=== PATIENT | male | born 1980 | race Caucasian/White ===

== ENCOUNTER 2017-08-24 17:33 | Inpatient (IN) | payer OTHER, BC ==
[2017-08-24] MEDS ORDERED: Furosemide 100 MG/10 ML VIAL SLOW IVP SCH (20:00)
[2017-08-24 20:29] LABS: #Basophils 0.1 thou/uL (0.0-0.2); #Eosinphils 0.3 thou/uL (0.0-0.7); #Lymphocytes 2.3 thou/uL (1.20-3.40); #Monocytes 0.4 thou/uL (0.11-0.59); #Neutrophils 3.9 thou/uL (1.40-6.50); %Basophils 0.8 % (0.0-1.0); %Eosinophils 4.5 % (0.0-10.0); %Lymphocytes 32.6 % (21.0-51.0); %Monocytes 6.1 % (0.0-10.0); %Neutrophils 55.9 % (42.0-75.0); Hemoglobin 12.2 g/dL (14.0-18.0); Mean Corpuscular HGB CONC 31.4 g/dL (32.0-36.0); Mean Corpuscular Hemoglobin 28.8 pg (27.0-31.0); Mean Corpuscular Volume 91.7 fl (80.0-94.0); Mean Platelet Volume 11.4 fL (7.4-10.4); Platelet Count 137 thou/uL (130-400); RBC Distribution Width 11.3 % (11.5-14.5); Red Blood Cell (RBC) Count 4.25 mill/uL (4.70-6.10)
[2017-08-24 20:30] VITALS: BMI 28.6
[2017-08-24 20:38] LABS: ALT (SGPT) 27 U/L (8-55); AST (SGOT) 31 U/L (5-34); Alkaline Phosphatase 63 U/L (40-150); Anion Gap 12 mmol/L (10-20); BUN (Urea Nitrogen) 32 mg/dL (8.9-20.6); Bilirubin, Direct 0.4 mg/dL (0.1-0.3); Bilirubin, Total 0.9 mg/dL (0.2-1.2); Calc. Creatinine Clearance 97 mL/min (70-130); Calcium 8.6 mg/dL (7.8-10.44); Carbon Dioxide 25 mmol/L (22-29); Chloride 111 mmol/L (98-107); Estimated GFR-MDRD 61; Glucose 116 mg/dL (70-105); Potassium 5.1 mmol/L (3.5-5.1); Protein, Total 5.6 g/dL (6.0-8.3); Sodium 143 mmol/L (136-145)
[2017-08-24 20:42] LABS: Troponin I 0.057 ng/mL (< 0.028)
[2017-08-24] MEDS ORDERED: HYDROcodone/Acetaminophen 10/325 mg Tablet PO PRN (21:47)
[2017-08-24] MEDS ORDERED: Acetaminophen 325 MG TAB PO PRN (21:47)
[2017-08-24] MEDS ORDERED: Dextrose 5% in Water 1,000 ML IV PRN (21:47)
[2017-08-24] MEDS ORDERED: Ondansetron ODT 4 MG TAB PO PRN (21:47)
[2017-08-24] MEDS ORDERED: HYDROcodone/Acetaminophen 5/325 mg Tablet PO PRN (21:47)
[2017-08-24] MEDS ORDERED: Dextrose 50% Abboject 50 ML SYRINGE SLOW IVP PRN (21:47)
[2017-08-24] MEDS ORDERED: Metoprolol Tartrate 25 MG TAB PO SCH (22:00)
[2017-08-24] MEDS ORDERED: Enoxaparin Sodium 40 MG/0.4 ML SYRINGE SC SCH (22:00)
[2017-08-24] MEDS: Nitroglycerin 2% Ointment 1 INCH/1 GM Packet TOP SCH (23:37)
[2017-08-24] MEDS: Furosemide 40 MG/4 ML VIAL SLOW IVP SCH (23:37)
[2017-08-25 05:09] LABS: Hemoglobin A1c 6.2 % (4.0-6.0)
[2017-08-25 05:24] LABS: #Basophils 0.1 thou/uL (0.0-0.2); #Eosinphils 0.2 thou/uL (0.0-0.7); #Monocytes 0.5 thou/uL (0.11-0.59); #Neutrophils 3.4 thou/uL (1.40-6.50); %Basophils 0.9 % (0.0-1.0); %Eosinophils 3.3 % (0.0-10.0); %Lymphocytes 31.9 % (21.0-51.0); %Monocytes 8.4 % (0.0-10.0); %Neutrophils 55.5 % (42.0-75.0); Anion Gap 10 mmol/L (10-20); BUN (Urea Nitrogen) 30 mg/dL (8.9-20.6); Calc. Creatinine Clearance 103 mL/min (70-130); Calcium 8.3 mg/dL (7.8-10.44); Carbon Dioxide 23 mmol/L (22-29); Cardiac Risk 2.6 (Less than 4.5); Chloride 110 mmol/L (98-107); Cholesterol 102 mg/dl (< 200 Desired); Estimated GFR-MDRD 65; Glucose 103 mg/dL (70-105); HDL Cholesterol 40 mg/dL (>60 Neg Risk); Hemoglobin 11.4 g/dL (14.0-18.0); LDL Cholesterol, Calculated 43 mg/dL; Magnesium 1.9 mg/dL (1.6-2.6); Mean Corpuscular HGB CONC 31.6 g/dL (32.0-36.0); Mean Corpuscular Hemoglobin 28.9 pg (27.0-31.0); Mean Corpuscular Volume 91.5 fl (80.0-94.0); Mean Platelet Volume 11.4 fL (7.4-10.4); Platelet Count 117 thou/uL (130-400); Potassium 4.4 mmol/L (3.5-5.1); RBC Distribution Width 11.3 % (11.5-14.5); Red Blood Cell (RBC) Count 3.95 mill/uL (4.70-6.10); Sodium 139 mmol/L (136-145); Triglycerides 97 mg/dL (Less than 150); White Blood Cell (WBC) Count 6.1 thou/uL (4.8-10.8)
[2017-08-25 05:28] LABS: Troponin I 0.051 ng/mL (< 0.028)
[2017-08-25 05:34] LABS: CKMB 15.6 ng/mL (0-6.6)
[2017-08-25] MEDS: Nitroglycerin 2% Ointment 1 INCH/1 GM Packet TOP SCH (06:15)
[2017-08-25] MEDS: Furosemide 40 MG/4 ML VIAL SLOW IVP SCH ×3 (06:15→15:55)
--- NOTE | 2017-08-25 06:25 | HP ---
PRIMARY CARE PHYSICIAN: Neeraj Howe MD PRIMARY WOOD DRILL OPERATOR: Holly Serrano M.D. CHIEF COMPLAINT: Shortness of breath. HISTORY OF PRESENT ILLNESS: Mr. Rader is a pleasant 37-year-old white male with history of diabete s, currently insulin-dependent with diabetic retinopathy and chronic kidney disease stage 3B, who pre sents for direct admission from Dr. Cheung's office for CHF. The patient does have a history of chronic lower extremity edema, he takes Lasix for this, 20 mg rani y. He has had increasing edema from just the feet and ankles as usual up to the upper and lower extr emities. He was told to increase his Lasix 60 mg a day but that was not having any effect. He went to Dr. Serrano for evaluation and followup. There, she did a bedside echo that showed an EF of 25%. He has been complaining of orthopnea, PND, and central chest pain only with coughing. The was go ing for about 2-3 days and she was concerned about that is a new decreased ejection fraction and sent him to the hospital for workup. The patient denies any fevers or chills, no sputum production, no h emoptysis or lower GI bleeding. No diarrhea or constipation. PAST MEDICAL HISTORY: 1. Insulin-dependent diabetes mellitus type 2. 2. Diabetic retinopathy. 3. Chronic kidney disease, stage 3B. 4. Chronic systolic congestive heart failure, unknown if this is ischemic or nonischemic cardiomyopa thy. HOME MEDICATIONS: 1. Lantus 40 units subcu at bedtime. 2. Lasix 20 mg p.o. daily, recently increased to 60 mg daily with no effect. He does not take any t liseth. 3. Lisinopril 10 mg daily. 4. Atorvastatin 40 mg p.o. at bedtime. PAST SURGICAL HISTORY: None. ALLERGIES: NKDA. FAMILY HISTORY: Significant for paternal grandparents with coronary disease. No history of prematur e coronary disease in the family. SOCIAL HISTORY: Negative for habits x3. REVIEW OF SYSTEMS: Ten-point review of systems was performed as negative for all systems except stat ed as per HPI. PHYSICAL EXAMINATION: VITAL SIGNS: Temperature 97.3, pulse 78, blood pressure 165/96, respiratory rate 18, satting 95% on room air. GENERAL: He is awake. He is alert. He is oriented x3. He is a well-developed, well-nourished, whi te male who appears to be in no acute distress. HEENT: Normocephalic, atraumatic. Pupils are equal, round, and reactive to light bilaterally. Muco us membranes are moist. No visible lesions. No thrush. NECK: Supple. There is no lymphadenopathy. He actually has no JVD. No thyromegaly. Normal caroti d upstroke. There are no bruits. LUNGS: Anteriorly has good air movement, symmetric chest excursion. Posteriorly is clear until the bases. He has bibasilar crackles. There is no prolonged expiratory phase and no wheezes. CARDIOVASCULAR: Normal S1, S2. No S3 or S4. I do not appreciate murmurs. ABDOMEN: Soft, it is nontender, nondistended. There is no hepatosplenomegaly. No rebound, rigidity , or guarding. There are normoactive bowel sounds in all 4 quadrants. EXTREMITIES: Show no cyanosis or clubbing. Does have 2+ edema up to about the level of the knee, 1+ to about mid thigh, it is pitting. SKIN: Warm, moist, and well perfused. There are no rashes, no other lesions. NEUROLOGIC: Cranial nerves II through XII are grossly intact. There is 5/5 strength, normal speech pattern and no focal deficits. MUSCULOSKELETAL: Normal to inspection. Enlarged joints are highly inflamed. There are no palpable effusions. LABORATORY DATA: Sodium 143, potassium 5.1, chloride is 111, bicarbonate 25, BUN 32, creatinine is 1 .31, actually improved from previous values of 1.95 back in 05/2017. Liver functions are normal. Tr oponin I is elevated at 0.057 without a prior. BNP of 741 up from 322.3 12 days ago. Glucose was 95. CBC showed a white count of 7, hemoglobin 12.2, hematocrit 39.0, platelet count is 137,000. He has a normal differential. RADIOGRAPHIC STUDIES: None. Chest x-ray has been ordered. Supposedly had a 2D echocardiogram done earlier today that I do not have the results just yet. ASSESSMENT AND PLAN: 1. New diagnosis of congestive heart failure, acute on chronic systolic. Ejection fraction of alleg edly 25%. The patient is already on lisinopril, we added metoprolol, and changed to IV Lasix. We wi ll get strict I's and O's and Cardiology (Dr. Serrano specifically) has been consulted. He would likely need to be on beta-alvin long-term. 2. Abnormal troponin at 0.057, certainly could be to demand ischemia; however, we do not know his co ronary artery status. We placed him on aspirin, oxygen continuously, nitroglycerin paste, and beta-b locker as above. We will get serial cardiac biomarkers. Follow up with an echocardiogram. 3. Diabetes mellitus type 2, insulin-dependent. We will hold his Lantus and put him on moderate dos e sliding scale insulin for correction. He will be on a diabetic heart healthy diet. We will likely make him n.p.o. after midnight until Dr. Serrano has a chance to see him. 4. Diabetic retinopathy, stable. 5. Chronic kidney disease stage 3. Per current lab work, his GFR is 61, which actually puts him in chronic kidney disease stage 2. His creatinine today is better than that has been. We will watch ve ry closely.
[2017-08-25] MEDS ORDERED: FLU VACC QS2017-18 36 mo. & older 0.5 ML SYRINGE IM ONE (09:00)
[2017-08-25] MEDS: Famotidine 20 MG TAB PO SCH ×2 (09:49→21:19)
[2017-08-25] MEDS: Aspirin 325 MG TAB PO SCH (09:49)
[2017-08-25] MEDS: Metoprolol Tartrate 25 MG TAB PO SCH ×2 (09:50→21:20)
[2017-08-25] MEDS: Lisinopril 10 MG TAB PO SCH (09:50)
[2017-08-25] MEDS: Enoxaparin Sodium 40 MG/0.4 ML SYRINGE SC SCH (09:50)
[2017-08-25] MEDS ORDERED: Clopidogrel Bisulfate 75 MG TAB ONE (09:56)
[2017-08-25 12:00] LABS: Troponin I 0.049 ng/mL (< 0.028)
[2017-08-25] MEDS: HumaLOG 300 UNITS/3 ML VIAL SC PRN (12:16)
--- NOTE | 2017-08-25 13:18 | PDOC.PN ---
- Subjective Encounter Start Date: 08/25/17 Encounter Start Time: 10:30 Subjective: breathing better, no chest pain or palpitations - Objective Resuscitation Status: Resuscitation Status FULL:Full Resuscitation MAR Reviewed: Yes Vital Signs & Weight: Vital Signs (12 hours) Temp Pulse Resp BP BP Pulse Ox 08/25/17 12:00 98.0 F 92 17 132/88 96 08/25/17 09:50 141/88 H 08/25/17 08:00 97.5 F L 90 18 141/88 H 95 08/25/17 04:00 97.8 F 93 15 123/83 95 Weight Weight 194 lb I&O: 08/24/17 08/25/17 08/26/17 06:59 06:59 06:59 Intake Total 240 240 Output Total 1275 Balance -1035 240 Result Diagrams: 08/25/17 04:31 08/25/17 04:31 Additional Labs: Accuchecks 08/25/17 08/25/17 08/25/17 11:13 06:39 00:02 POC Glucose 280 H 90 111 H 08/24/17 20:18 POC Glucose 95 Phys Exam - Physical Examination HEENT: PERRLA, moist MMs Neck: no JVD, supple Respiratory: no wheezing, no rales Cardiovascular: RRR, no significant murmur Gastrointestinal: soft, non-tender, positive bowel sounds Musculoskeletal: pulses present, edema present Neurological: non-focal, moves all 4 limbs Psychiatric: normal affect, A&O x 3 Dx/Plan (1) CHF exacerbation Code(s): I50.9 - HEART FAILURE, UNSPECIFIED Status: Acute Qualifiers: Congestive heart failure type: systolic Qualified Code(s): I50.23 - Acute on chronic systolic (congestive) heart failure (2) HTN (hypertension) Code(s): I10 - ESSENTIAL (PRIMARY) HYPERTENSION Status: Chronic Qualifiers: Hypertension type: essential hypertension Qualified Code(s): I10 - Essential (primary) hypertension (3) Demand ischemia of myocardium Code(s): I24.8 - OTHER FORMS OF ACUTE ISCHEMIC HEART DISEASE Status: Acute (4) Cardiomyopathy Code(s): I42.9 - CARDIOMYOPATHY, UNSPECIFIED Status: Suspected - Plan prior h/o alc abuse for more than 12 yrs (12-24beers daily), quit 2yrs back -: will change lasix to q12h, had recent echo done in office -: no prior stress test/cath per patient -: is on lisinopril, lopressor and nitropaste -: cardiology has been consulted () * . Review of Systems - Medications/Allergies Allergies/Adverse Reactions: Allergies Allergy/AdvReac Type Severity Reaction Status Date / Time No Known Allergies Allergy Verified 08/24/17 20:35 Medications: Current Medications Acetaminophen (Tylenol) 650 mg PO Q4H PRN PRN Reason: Headache/Fever or Pain Hydrocodone Bitart/Acetaminophen ([place] 10/325) 1 tab PO Q4H PRN PRN Reason: Severe Pain (7-10) Hydrocodone Bitart/Acetaminophen ([place] 5/325) 1 tab PO Q4H PRN PRN Reason: Moderate Pain (4-6) Aspirin (Aspirin) 325 mg PO QAM-WM ON LICENSE OF [facility] Last Admin: 08/25/17 09:49 Dose: 325 mg Dextrose/Water (Dextrose 50%) 25 gm SLOW IVP PRN PRN PRN Reason: Hypoglycemia Enoxaparin Sodium (Lovenox) 40 mg SC 0900 ON LICENSE OF [facility] Last Admin: 08/25/17 09:50 Dose: 40 mg Famotidine (Pepcid) 20 mg PO BID ON LICENSE OF [facility] Last Admin: 08/25/17 09:49 Dose: 20 mg Furosemide (Lasix) 40 mg SLOW IVP 0400,1000,1600,2200 ON LICENSE OF [facility] Last Admin: 08/25/17 09:50 Dose: 40 mg Glucagon (Glucagon) 1 mg IM PRN PRN PRN Reason: Hypoglycemia Dextrose/Water (D5w) 1,000 mls @ 0 mls/hr IV .Q0M PRN; As Directed PRN Reason: Hypoglycemia Insulin Human Lispro (Humalog) 0 units SC .MODERATE SLIDING SC PRN PRN Reason: Moderate Correctional Scale Last Admin: 08/25/17 12:16 Dose: 6 unit Lisinopril (Zestril) 10 mg PO DAILY ON LICENSE OF [facility] Last Admin: 08/25/17 09:50 Dose: 10 mg Metoprolol Tartrate (Lopressor) 25 mg PO BID ON LICENSE OF [facility] Last Admin: 08/25/17 09:50 Dose: 25 mg Nitroglycerin (Nitro-Bid 2% Ointment) 0.5 inch TOP Q8HR ON LICENSE OF [facility] Last Admin: 08/25/17 06:15 Dose: 0.5 inch Ondansetron HCl (Zofran Odt) 4 mg PO Q6H PRN PRN Reason: Nausea/Vomiting
--- NOTE | 2017-08-25 13:23 | RAD ---
ONE VIEW CHEST: HISTORY: Congestive heart failure. COMPARISON: 02/04/2011 FINDINGS: Portable upright chest demonstrates a normal cardiac silhouette. The pulmonary vessels are prominent . There are patchy interstitial opacities throughout the lung parenchyma. Small bilateral effusion. No pneumothorax. IMPRESSION: Congestive heart failure. POS: KENNY
[2017-08-25] MEDS ORDERED: Metolazone 5 MG TAB PO SCH (14:30)
[2017-08-25] MEDS ORDERED: Mag-Al Plus 1200 MG/1200 MG/120 MG/30 ML UDCUP PO PRN (16:37)
[2017-08-25] MEDS: Calcium Carbonate 500 MG ChewTAB PO PRN (16:45)
--- NOTE | 2017-08-25 18:27 | PDOC.CTH ---
<Angeles Person - Last Filed: 08/25/17 18:27> Cardiology Progress Note - Subjective The pt seen and examined. No overnight events. No cardiac complaints. He stated he can breath much better today. - Objective Vital Signs Temp Pulse Pulse Pulse Resp BP BP 08/25/17 16:00 98.0 F 89 18 08/25/17 12:00 98.0 F 92 17 08/25/17 09:50 141/88 H 08/25/17 09:26 94 97 129/78 08/25/17 08:00 97.5 F L 90 18 BP BP Pulse Ox Pulse Ox Pulse Ox 08/25/17 16:00 126/82 96 08/25/17 12:00 132/88 96 08/25/17 09:50 08/25/17 09:26 128/81 97 97 08/25/17 08:00 141/88 H 95 Weight 194 lb 08/24/17 08/25/17 08/26/17 06:59 06:59 06:59 Intake Total 240 360 Output Total 1275 Balance -1035 360 - Physical Examination General/Neuro: alert & oriented x3 Neck: no JVD present Lungs: other: (diminished at bases) Heart: RRR Abdomen: soft Extremities: other: (3+ pitting edema to BLE) - Telemetry Telemetry Rhythm: SR - Labs Result Diagrams: 08/25/17 04:31 08/25/17 04:31 Troponin/CKMB CK-MB (CK-2) 18.0 ng/mL (0-6.6) H* 08/25/17 11:25 Troponin I 0.049 ng/mL (< 0.028) H 08/25/17 11:25 - Assessment/Plan 1. Acute on chronic systolic HF - Echo on 08/24/17 showed EF 25-30%, global hypokenesis, mod MR, mod LAE, mild PI and TR and Lt large plural effusion and small pericardial effusion; Stable with Lasix 40mg IV BID, ELSY and BBlocker; Metolazone 5mg PO x1 given today; if no respond well with the med, possible start Dobutamin; cont. monitor 2. Abn. Troponin due to Demand ischemia of myocardium - stable; cont. monitor on tele 3. Lt large pleural effusion - stable with RA; on Lasix 40mg IV BID 4. HTN - Stable with Lisinopril 10mg qd and Metoprolol 25mg; cont. monitor 5. CKD stage 3 - stable 6. BLE Localized edema - improving per the pt's report 7. hyperlipidemia - Start Lipitor 40mg at HS 8. DM type 2 - ACHS BG check with Insulin SS 9. Hx of ETOH abuse - 12-24 beers daily, quit in 2014 MAR reviewed Review of Systems - Review of Systems Constitutional: reports: no symptoms reported EENTM: reports: no symptoms reported Respiratory: reports: see HPI Cardiac (ROS): reports: no symptoms reported ABD/GI: reports: no symptoms reported : reports: no symptoms reported Musculoskeletal: reports: no symptoms reported <Chris Serrano - Last Filed: 08/25/17 23:29> Cardiology Progress Note - Objective Vital Signs Temp Pulse Resp BP Pulse Ox 08/25/17 21:15 98.2 F 90 18 118/74 96 08/25/17 16:00 98.0 F 89 18 126/82 96 08/25/17 12:00 98.0 F 92 17 132/88 96 Weight 194 lb 08/24/17 08/25/17 08/26/17 06:59 06:59 06:59 Intake Total 240 720 Output Total 1275 1600 Balance -1035 -910 - Labs Result Diagrams: 08/25/17 04:31 08/25/17 04:31 Troponin/CKMB CK-MB (CK-2) 16.3 ng/mL (0-6.6) H* 08/25/17 19:26 Troponin I 0.052 ng/mL (< 0.028) H 08/25/17 19:26 - Assessment/Plan Pt. seen and eval. by me. His symptoms are slightly improved. The lower extremity edema has improved some but still significant edema is present. When he is able to lie flat then a cardiac cath will be the best diagnostic test to evaluate the coronanies to determine if the cardiomyopathy is ischemic in nature. The renal function appears stable I will continue zaroxolyn for another day. Exam: RRR, decr. BS bilat. bases,3+ LE edema.
[2017-08-25 20:04] LABS: Troponin I 0.052 ng/mL (< 0.028)
[2017-08-25 20:05] LABS: CKMB 16.3 ng/mL (0-6.6); Critical Call CKMBM RESULT DECREASING
[2017-08-25] MEDS: Atorvastatin Calcium 40 MG TAB PO SCH (21:19)
[2017-08-26 05:22] LABS: #Basophils 0.1 thou/uL (0.0-0.2); #Eosinphils 0.3 thou/uL (0.0-0.7); #Lymphocytes 1.6 thou/uL (1.20-3.40); #Monocytes 0.4 thou/uL (0.11-0.59); %Basophils 0.9 % (0.0-1.0); %Monocytes 7.6 % (0.0-10.0); %Neutrophils 56.4 % (42.0-75.0); Hemoglobin 11.6 g/dL (14.0-18.0); Mean Corpuscular Hemoglobin 28.4 pg (27.0-31.0); Mean Corpuscular Volume 91.9 fl (80.0-94.0); Mean Platelet Volume 11.8 fL (7.4-10.4); Platelet Count 127 thou/uL (130-400); RBC Distribution Width 11.5 % (11.5-14.5); Red Blood Cell (RBC) Count 4.08 mill/uL (4.70-6.10); White Blood Cell (WBC) Count 5.4 thou/uL (4.8-10.8)
[2017-08-26 05:32] LABS: Anion Gap 12 mmol/L (10-20); BUN (Urea Nitrogen) 34 mg/dL (8.9-20.6); Calc. Creatinine Clearance 77 mL/min (70-130); Calcium 8.7 mg/dL (7.8-10.44); Carbon Dioxide 28 mmol/L (22-29); Chloride 106 mmol/L (98-107); Estimated GFR-MDRD 48; Glucose 121 mg/dL (70-105); Potassium 4.9 mmol/L (3.5-5.1); Sodium 141 mmol/L (136-145)
[2017-08-26] MEDS: Furosemide 40 MG/4 ML VIAL SLOW IVP SCH ×2 (05:58→14:05)
[2017-08-26] MEDS: Enoxaparin Sodium 40 MG/0.4 ML SYRINGE SC SCH (08:31)
[2017-08-26] MEDS: Lisinopril 10 MG TAB PO SCH (08:31)
[2017-08-26] MEDS: Famotidine 20 MG TAB PO SCH ×2 (08:31→22:29)
[2017-08-26] MEDS: Metoprolol Tartrate 25 MG TAB PO SCH ×2 (08:31→22:29)
[2017-08-26] MEDS: Aspirin 325 MG TAB PO SCH (08:31)
--- NOTE | 2017-08-26 11:31 | PDOC.PN ---
- Subjective Encounter Start Date: 08/26/17 Encounter Start Time: 09:45 Subjective: breathing better, no chest pain -: is amb in room - Objective Resuscitation Status: Resuscitation Status FULL:Full Resuscitation MAR Reviewed: Yes Vital Signs & Weight: Vital Signs (12 hours) Temp Pulse Resp BP Pulse Ox 08/26/17 11:15 98.4 F 87 16 118/80 94 L 08/26/17 08:00 98.1 F 87 18 93 L 08/26/17 07:59 98.1 F 87 18 127/87 93 L 08/26/17 04:00 98.4 F 86 20 120/80 94 L 08/26/17 03:43 96 08/26/17 00:00 98.6 F 85 20 121/75 94 L Weight Weight 191 lb 8 oz I&O: 08/25/17 08/26/17 08/27/17 06:59 06:59 06:59 Intake Total 240 1120 Output Total 1275 2500 Balance -1035 -1380 Result Diagrams: 08/26/17 05:00 08/26/17 05:00 Additional Labs: Accuchecks 08/26/17 08/25/17 08/25/17 05:59 20:42 16:13 POC Glucose 119 H 208 H 99 08/25/17 11:13 POC Glucose 280 H Phys Exam - Physical Examination HEENT: PERRLA, moist MMs Neck: no JVD, supple Respiratory: no wheezing, no rales Cardiovascular: RRR, no significant murmur Gastrointestinal: soft, non-tender, positive bowel sounds Musculoskeletal: pulses present, edema present Neurological: non-focal, moves all 4 limbs Psychiatric: A&O x 3 Dx/Plan (1) CHF exacerbation Code(s): I50.9 - HEART FAILURE, UNSPECIFIED Status: Acute Qualifiers: Congestive heart failure type: systolic Qualified Code(s): I50.23 - Acute on chronic systolic (congestive) heart failure Comment: ef of 25% (2) HTN (hypertension) Code(s): I10 - ESSENTIAL (PRIMARY) HYPERTENSION Status: Chronic Qualifiers: Hypertension type: essential hypertension Qualified Code(s): I10 - Essential (primary) hypertension (3) Demand ischemia of myocardium Code(s): I24.8 - OTHER FORMS OF ACUTE ISCHEMIC HEART DISEASE Status: Acute (4) Cardiomyopathy Code(s): I42.9 - CARDIOMYOPATHY, UNSPECIFIED Status: Suspected Qualifiers: Cardiomyopathy type: unspecified Qualified Code(s): I42.9 - Cardiomyopathy , unspecified - Plan diuresing well -: further w/u including cath when orthopnea resolves -: LE edema is receding well -: on lasix and zaroxolyn -: to amb in hallway as tolerated * . Review of Systems - Medications/Allergies Allergies/Adverse Reactions: Allergies Allergy/AdvReac Type Severity Reaction Status Date / Time No Known Allergies Allergy Verified 08/24/17 20:35 Medications: Current Medications Acetaminophen (Tylenol) 650 mg PO Q4H PRN PRN Reason: Headache/Fever or Pain Hydrocodone Bitart/Acetaminophen ([place] 10/325) 1 tab PO Q4H PRN PRN Reason: Severe Pain (7-10) Hydrocodone Bitart/Acetaminophen ([place] 5/325) 1 tab PO Q4H PRN PRN Reason: Moderate Pain (4-6) Al Hydroxide/Mg Hydroxide (Maalox Plus) 30 ml PO Q6H PRN PRN Reason: Heartburn or Indigestion Aspirin (Aspirin) 325 mg PO QAM-WM [facility] Last Admin: 08/26/17 08:31 Dose: 325 mg Atorvastatin Calcium (Lipitor) 40 mg PO HS [facility] Last Admin: 08/25/17 21:19 Dose: 40 mg Calcium Carbonate (Tums) 1,000 mg PO Q4H PRN PRN Reason: Heartburn or Indigestion Last Admin: 08/25/17 16:45 Dose: 1,000 mg Dextrose/Water (Dextrose 50%) 25 gm SLOW IVP PRN PRN PRN Reason: Hypoglycemia Enoxaparin Sodium (Lovenox) 40 mg SC 0900 [facility] Last Admin: 08/26/17 08:31 Dose: 40 mg Famotidine (Pepcid) 20 mg PO BID [facility] Last Admin: 08/26/17 08:31 Dose: 20 mg Furosemide (Lasix) 40 mg SLOW IVP 0600,1400 [facility] Last Admin: 08/26/17 05:58 Dose: 40 mg Glucagon (Glucagon) 1 mg IM PRN PRN PRN Reason: Hypoglycemia Dextrose/Water (D5w) 1,000 mls @ 0 mls/hr IV .Q0M PRN; As Directed PRN Reason: Hypoglycemia Insulin Human Lispro (Humalog) 0 units SC .MODERATE SLIDING SC PRN PRN Reason: Moderate Correctional Scale Last Admin: 08/25/17 12:16 Dose: 6 unit Lisinopril (Zestril) 10 mg PO DAILY [facility] Last Admin: 08/26/17 08:31 Dose: 10 mg Metoprolol Tartrate (Lopressor) 25 mg PO BID [facility] Last Admin: 08/26/17 08:31 Dose: 25 mg Ondansetron HCl (Zofran Odt) 4 mg PO Q6H PRN PRN Reason: Nausea/Vomiting
--- NOTE | 2017-08-26 12:08 | PDOC.CTH ---
<Angeles Person - Last Filed: 08/26/17 12:06> Cardiology Progress Note - Subjective the pt seen and examined. No overnight events. No cardiac complaints. He reported that he could void 2000ml in AM yesterday, but only 500ml after Metolazone 5mg. His also reported that his BLE edema have not improved and the pt still cannot be in spine position at this moment - Objective Vital Signs Temp Pulse Resp BP Pulse Ox 08/26/17 11:15 98.4 F 87 16 118/80 94 L 08/26/17 08:00 98.1 F 87 18 93 L 08/26/17 07:59 98.1 F 87 18 127/87 93 L 08/26/17 04:00 98.4 F 86 20 120/80 94 L 08/26/17 03:43 96 Weight 191 lb 8 oz 08/25/17 08/26/17 08/27/17 06:59 06:59 06:59 Intake Total 240 1120 Output Total 1275 2500 Balance -1035 -1380 - Physical Examination General/Neuro: alert & oriented x3 Neck: no JVD present Lungs: other: (diminished at bases) Heart: RRR Abdomen: soft Extremities: other: (3+ pitting BLE edema) - Telemetry Telemetry Rhythm: SR 80s - Labs Result Diagrams: 08/26/17 05:00 08/26/17 05:00 Troponin/CKMB CK-MB (CK-2) 16.3 ng/mL (0-6.6) H* 08/25/17 19:26 Troponin I 0.052 ng/mL (< 0.028) H 08/25/17 19:26 - Assessment/Plan 1. Acute on chronic systolic HF - Echo on 08/24/17 showed EF 25-30%, global hypokenesis, mod MR, mod LAE, mild PI and TR and Lt large plural effusion and small pericardial effusion; On Lasix 40mg IV BID, ELSY and BBlocker; The pt did not respond well with Metolazone 5mg PO x1 yesterday; will start Dobutamin IV drip; cont. monitor 2. Abn. Troponin due to Demand ischemia of myocardium - stable; cont. monitor on tele 3. Lt large pleural effusion - stable with RA; on Lasix 40mg IV BID 4. HTN - Stable with Lisinopril 10mg qd and Metoprolol 25mg; cont. monitor 5. CKD stage 3 - stable 6. BLE Localized edema - improving per the pt's report 7. hyperlipidemia - Start Lipitor 40mg at HS 8. DM type 2 - ACHS BG check with Insulin SS 9. Hx of ETOH abuse - 12-24 beers daily, quit in 2014 MAR reviewed * will start Dobutamin IV drip * Cardiac cath to evaluate the coronaries to determine if the cardiomyopathy is ischemic in nature when he is able to lie flat. Review of Systems - Review of Systems Constitutional: reports: no symptoms reported EENTM: reports: no symptoms reported Respiratory: reports: see HPI Cardiac (ROS): reports: no symptoms reported ABD/GI: reports: no symptoms reported : reports: no symptoms reported Musculoskeletal: reports: no symptoms reported Skin: reports: no symptoms reported <Chris Serrano - Last Filed: 08/27/17 10:10> Cardiology Progress Note - Objective Vital Signs Temp Pulse Resp BP BP Pulse Ox 08/27/17 08:00 98 F 97 16 92 L 08/27/17 07:53 159/77 H 08/27/17 07:48 98 F 97 16 159/77 H 92 L 08/27/17 06:00 94 18 134/74 94 L 08/27/17 00:05 99 16 145/80 H Weight 188 lb 14.4 oz 08/26/17 08/27/17 08/28/17 06:59 06:59 06:59 Intake Total 1120 2021 Output Total 2500 2500 Balance -1380 -479 - Labs Result Diagrams: 08/26/17 05:00 08/27/17 05:03 Troponin/CKMB CK-MB (CK-2) 16.3 ng/mL (0-6.6) H* 08/25/17 19:26 Troponin I 0.052 ng/mL (< 0.028) H 08/25/17 19:26 - Assessment/Plan Pt. seen and eval. by me. He is diuresing better with the dobutamine. If he is stable then I will plan for a cardiac cath on Thursday.I agree withe remainder of the A/P by the COUNTER [employer]ER.
[2017-08-26] MEDS: DOBUTamine 500 mg/250 ml 250 ML IVPB SCH (14:05)
[2017-08-26] MEDS: HumaLOG 300 UNITS/3 ML VIAL SC PRN (18:32)
[2017-08-26] MEDS: Atorvastatin Calcium 40 MG TAB PO SCH (22:29)
[2017-08-27] MEDS: Calcium Carbonate 500 MG ChewTAB PO PRN (02:16)
[2017-08-27 05:32] LABS: Anion Gap 10 mmol/L (10-20); BUN (Urea Nitrogen) 32 mg/dL (8.9-20.6); Calc. Creatinine Clearance 75 mL/min (70-130); Calcium 8.6 mg/dL (7.8-10.44); Carbon Dioxide 30 mmol/L (22-29); Chloride 105 mmol/L (98-107); Estimated GFR-MDRD 48; Glucose 131 mg/dL (70-105); Potassium 4.4 mmol/L (3.5-5.1); Sodium 141 mmol/L (136-145)
[2017-08-27] MEDS: Furosemide 40 MG/4 ML VIAL SLOW IVP SCH ×2 (06:12→13:25)
[2017-08-27] MEDS: Metoprolol Tartrate 25 MG TAB PO SCH ×2 (07:53→21:04)
[2017-08-27] MEDS: Aspirin 325 MG TAB PO SCH (07:53)
[2017-08-27] MEDS: Famotidine 20 MG TAB PO SCH ×2 (07:53→21:04)
[2017-08-27] MEDS: Enoxaparin Sodium 40 MG/0.4 ML SYRINGE SC SCH (07:53)
[2017-08-27] MEDS: Lisinopril 10 MG TAB PO SCH (07:53)
--- NOTE | 2017-08-27 11:39 | PDOC.PN ---
- Subjective Encounter Start Date: 08/27/17 Encounter Start Time: 09:15 Subjective: is ambulating in hallway and downstair cafetaria -: no chest pain or palp -: orthopnea has resolved now - Objective Resuscitation Status: Resuscitation Status FULL:Full Resuscitation MAR Reviewed: Yes Vital Signs & Weight: Vital Signs (12 hours) Temp Pulse Resp BP BP Pulse Ox 08/27/17 11:27 98 F 86 16 130/83 96 08/27/17 08:00 98 F 97 16 92 L 08/27/17 07:53 159/77 H 08/27/17 07:48 98 F 97 16 159/77 H 92 L 08/27/17 06:00 94 18 134/74 94 L 08/27/17 00:05 99 16 145/80 H Weight Weight 188 lb 14.4 oz I&O: 08/26/17 08/27/17 08/28/17 06:59 06:59 06:59 Intake Total 1120 1 Output Total 2500 2500 Balance -5310 -479 Result Diagrams: 08/26/17 05:00 08/27/17 05:03 Additional Labs: Accuchecks 08/27/17 08/26/17 08/26/17 05:28 20:28 17:13 POC Glucose 125 H 146 H 197 H 08/26/17 11:57 POC Glucose 130 H Phys Exam - Physical Examination HEENT: PERRLA, moist MMs Neck: no JVD, supple Respiratory: no wheezing, no rales Cardiovascular: RRR, no significant murmur Gastrointestinal: soft, non-tender, positive bowel sounds Musculoskeletal: pulses present, edema present Neurological: non-focal, moves all 4 limbs Psychiatric: A&O x 3 Dx/Plan (1) CHF exacerbation Code(s): I50.9 - HEART FAILURE, UNSPECIFIED Status: Acute Qualifiers: Congestive heart failure type: systolic Qualified Code(s): I50.23 - Acute on chronic systolic (congestive) heart failure Comment: ef of 25% (2) HTN (hypertension) Code(s): I10 - ESSENTIAL (PRIMARY) HYPERTENSION Status: Chronic Qualifiers: Hypertension type: essential hypertension Qualified Code(s): I10 - Essential (primary) hypertension (3) Demand ischemia of myocardium Code(s): I24.8 - OTHER FORMS OF ACUTE ISCHEMIC HEART DISEASE Status: Acute (4) Cardiomyopathy Code(s): I42.9 - CARDIOMYOPATHY, UNSPECIFIED Status: Suspected Qualifiers: Cardiomyopathy type: unspecified Qualified Code(s): I42.9 - Cardiomyopathy , unspecified - Plan is diuresing well -: creatinine holding up around 1.6 -: on dobutamine drip and lasix -: further w/u per cardio advice -: no arrhythmias on telemetry, on asp, lopressor, lisinopril and lipitor * . Review of Systems - Medications/Allergies Allergies/Adverse Reactions: Allergies Allergy/AdvReac Type Severity Reaction Status Date / Time No Known Allergies Allergy Verified 08/24/17 20:35 Medications: Current Medications Acetaminophen (Tylenol) 650 mg PO Q4H PRN PRN Reason: Headache/Fever or Pain Hydrocodone Bitart/Acetaminophen ([place] 10/325) 1 tab PO Q4H PRN PRN Reason: Severe Pain (7-10) Hydrocodone Bitart/Acetaminophen ([place] 5/325) 1 tab PO Q4H PRN PRN Reason: Moderate Pain (4-6) Al Hydroxide/Mg Hydroxide (Maalox Plus) 30 ml PO Q6H PRN PRN Reason: Heartburn or Indigestion Aspirin (Aspirin) 325 mg PO QAM-[facility] Last Admin: 08/27/17 07:53 Dose: 325 mg Atorvastatin Calcium (Lipitor) 40 mg PO HS [facility] Last Admin: 08/26/17 22:29 Dose: 40 mg Calcium Carbonate (Tums) 1,000 mg PO Q4H PRN PRN Reason: Heartburn or Indigestion Last Admin: 08/27/17 02:16 Dose: 1,000 mg Dextrose/Water (Dextrose 50%) 25 gm SLOW IVP PRN PRN PRN Reason: Hypoglycemia Enoxaparin Sodium (Lovenox) 40 mg SC 0900 [facility] Last Admin: 08/27/17 07:53 Dose: 40 mg Famotidine (Pepcid) 20 mg PO BID [facility] Last Admin: 08/27/17 07:53 Dose: 20 mg Furosemide (Lasix) 40 mg SLOW IVP 0600,1400 [facility] Last Admin: 08/27/17 06:12 Dose: 40 mg Glucagon (Glucagon) 1 mg IM PRN PRN PRN Reason: Hypoglycemia Dextrose/Water (D5w) 1,000 mls @ 0 mls/hr IV .Q0M PRN; As Directed PRN Reason: Hypoglycemia Dobutamine HCl/Dextrose (Dobutamine 500 Mg/250 Ml) 250 mls @ 6.515 mls/hr IVPB INF LISA; 2.5 MCG/KG/MIN PRN Reason: Protocol Last Admin: 08/26/17 14:05 Dose: 250 mls Insulin Human Lispro (Humalog) 0 units SC .MODERATE SLIDING SC PRN PRN Reason: Moderate Correctional Scale Last Admin: 08/26/17 18:32 Dose: 2 unit Lisinopril (Zestril) 10 mg PO DAILY [facility] Last Admin: 08/27/17 07:53 Dose: 10 mg Metoprolol Tartrate (Lopressor) 25 mg PO BID [facility] Last Admin: 08/27/17 07:53 Dose: 25 mg Ondansetron HCl (Zofran Odt) 4 mg PO Q6H PRN PRN Reason: Nausea/Vomiting Last Admin: 08/26/17 14:04 Dose: 4 mg
--- NOTE | 2017-08-27 13:39 | PDOC.CTH ---
<Angeles Person - Last Filed: 08/27/17 13:43> Cardiology Progress Note - Subjective The pt seen and examined. No overnight events. No cardiac complaints. The pt reported that he could sleep on his back Last night. - Objective Vital Signs Temp Pulse Resp BP BP Pulse Ox 08/27/17 11:27 98 F 86 16 130/83 96 08/27/17 08:00 98 F 97 16 92 L 08/27/17 07:53 159/77 H 08/27/17 07:48 98 F 97 16 159/77 H 92 L 08/27/17 06:00 94 18 134/74 94 L Weight 188 lb 14.4 oz 08/26/17 08/27/17 08/28/17 06:59 06:59 06:59 Intake Total 1120 2020 Output Total 2500 2500 Balance -1380 -479 - Physical Examination General/Neuro: alert & oriented x3 Neck: no JVD present Lungs: other: (diminished at bases) Heart: RRR Abdomen: soft Extremities: other: (2-3+ pitting BLE edema) - Telemetry Telemetry Rhythm: SR - Labs Result Diagrams: 08/26/17 05:00 08/27/17 05:03 Troponin/CKMB CK-MB (CK-2) 16.3 ng/mL (0-6.6) H* 08/25/17 19:26 Troponin I 0.052 ng/mL (< 0.028) H 08/25/17 19:26 - Assessment/Plan 1. Acute on chronic systolic HF - Echo on 08/24/17 showed EF 25-30%, global hypokenesis, mod MR, mod LAE, mild PI and TR and Lt large plural effusion and small pericardial effusion; On Lasix 40mg IV BID, ELSY, BBlocker, and Dobutamin IV drip; cont. monitor; Possible Cardiac cath tomorrow at 0830 2. Abn. Troponin due to Demand ischemia of myocardium - stable; cont. monitor on tele 3. Lt large pleural effusion - stable with RA; on Lasix 40mg IV BID 4. HTN - Stable with Lisinopril 10mg qd and Metoprolol 25mg; cont. monitor 5. CKD stage 3 - stable 6. BLE Localized edema - improving per the pt's report 7. hyperlipidemia - on Statin 8. DM type 2 - ACHS BG check with Insulin SS; managed by PCP 9. Hx of ETOH abuse - 12-24 beers daily, quit in 2014 MAR reviewed * Cont. Dobutamin IV drip * Possible Cardiac cath tomorrow at 0830 for evaluation of the coronaries to determine if the cardiomyopathy is ischemic in nature. * The cardiac cath procedure and the risk of the procedure were explained to the pt and his family which included hemorrhage and infection from Catheter insertion site, perforation of the catheter, thrombosis, CVA, [place], Allergic reaction to Iodine, and possible . The pt and family voiced understanding and agree to proceed the procedure tomorrow. Review of Systems - Review of Systems Constitutional: reports: no symptoms reported EENTM: reports: no symptoms reported Respiratory: reports: no symptoms reported ABD/GI: reports: no symptoms reported <Chris Serrano - Last Filed: 08/27/17 22:47> Cardiology Progress Note - Objective Vital Signs Temp Pulse Resp BP Pulse Ox 08/27/17 15:23 98 F 92 16 141/82 H 91 L 08/27/17 11:27 98 F 86 16 130/83 96 Weight 188 lb 14.4 oz 08/26/17 08/27/17 08/28/17 06:59 06:59 06:59 Intake Total 1120 1 720 Output Total 2500 2500 1875 Balance -3981 -817 -3389 - Labs Result Diagrams: 08/26/17 05:00 08/27/17 05:03 Troponin/CKMB CK-MB (CK-2) 16.3 ng/mL (0-6.6) H* 08/25/17 19:26 Troponin I 0.052 ng/mL (< 0.028) H 08/25/17 19:26 - Assessment/Plan Pt. seen and evaluated by me.I agree with the TIRE SETTER. He continues to diurese with the dobutamine at a low dose. He is finally able to lie down and breath easy. Plan for cardiac cath in AM to evaluate the coronary status.I have explained the procedure and risks jessica include bleeding,infection,[place],CVA,renal failure. He agrees to proceed.
[2017-08-27] MEDS ORDERED: Communication Order-Pharmacy FS SCH (13:45)
[2017-08-27] MEDS: HumaLOG 300 UNITS/3 ML VIAL SC PRN (18:14)
[2017-08-27] MEDS: Atorvastatin Calcium 40 MG TAB PO SCH (21:04)
[2017-08-28 05:26] LABS: Anion Gap 10 mmol/L (10-20); BUN (Urea Nitrogen) 28 mg/dL (8.9-20.6); Calc. Creatinine Clearance 79 mL/min (70-130); Calcium 8.9 mg/dL (7.8-10.44); Carbon Dioxide 34 mmol/L (22-29); Chloride 102 mmol/L (98-107); Estimated GFR-MDRD 51; Glucose 139 mg/dL (70-105); Sodium 142 mmol/L (136-145)
[2017-08-28] MEDS: Lisinopril 10 MG TAB PO SCH (06:02)
[2017-08-28] MEDS: Furosemide 40 MG/4 ML VIAL SLOW IVP SCH ×2 (06:02→14:28)
[2017-08-28] MEDS: Famotidine 20 MG TAB PO SCH ×2 (06:02→20:11)
[2017-08-28] MEDS: Aspirin 325 MG TAB PO SCH (06:03)
[2017-08-28] MEDS: Enoxaparin Sodium 40 MG/0.4 ML SYRINGE SC SCH (06:03)
[2017-08-28] MEDS: Metoprolol Tartrate 25 MG TAB PO SCH ×2 (06:03→20:11)
[2017-08-28] MEDS: DOBUTamine 500 mg/250 ml 250 ML IVPB SCH (07:17)
[2017-08-28] MEDS ORDERED: Verapamil 5 MG/2 ML VIAL ONE (08:45)
[2017-08-28] MEDS ORDERED: Nitroglycerin 100MG/250ML BOT 250 ML ONE (08:45)
[2017-08-28] MEDS ORDERED: Heparin 10,000 UNITS/1 ML VIAL ONE (08:45)
[2017-08-28] MEDS ORDERED: Sodium Chloride 0.9% 200 ML IV SCH (10:06)
[2017-08-28] MEDS ORDERED: Acetaminophen/Codeine 30-300mg Tablet PO PRN ×2 (10:06)
[2017-08-28] MEDS ORDERED: traMADol HCl 50 MG TAB PO PRN (10:06)
[2017-08-28] MEDS ORDERED: Nitroglycerin 0.4 MG TAB (25 Tab Bottle) SL PRN (10:06)
[2017-08-28] MEDS ORDERED: Iopamidol 370 76% 100 ML VIAL ONE (11:51)
[2017-08-28] MEDS ORDERED: Amlodipine 5 MG TAB PO SCH ×2 (13:51→14:00)
--- NOTE | 2017-08-28 14:43 | PDOC.PN ---
- Subjective Encounter Start Date: 08/28/17 Encounter Start Time: 11:15 Subjective: no sob, feels better -: is post cath with right radial approach - Objective Resuscitation Status: Resuscitation Status FULL:Full Resuscitation MAR Reviewed: Yes Vital Signs & Weight: Vital Signs (12 hours) Temp Pulse Resp BP BP Pulse Ox 08/28/17 14:28 90 152/94 H 08/28/17 11:15 90 22 H 169/105 H 96 08/28/17 07:02 98.2 F 91 20 157/86 H 95 08/28/17 06:02 157/86 H 08/28/17 04:00 98 F 87 16 157/86 H 95 Weight Weight 189 lb I&O: 08/27/17 08/28/17 08/29/17 06:59 06:59 06:59 Intake Total 2020 1122 Output Total 2500 2950 Balance -655 -9349 Result Diagrams: 08/26/17 05:00 08/28/17 04:56 Additional Labs: Accuchecks 08/28/17 08/28/17 08/27/17 11:22 06:27 19:49 POC Glucose 140 H 126 H 151 H 08/27/17 17:16 POC Glucose 169 H Phys Exam - Physical Examination HEENT: PERRLA, moist MMs Neck: no JVD, supple Respiratory: no wheezing, no rales Cardiovascular: RRR, no significant murmur Gastrointestinal: soft, non-tender, positive bowel sounds Musculoskeletal: no edema, pulses present Neurological: non-focal, moves all 4 limbs Psychiatric: A&O x 3 Dx/Plan (1) CHF exacerbation Code(s): I50.9 - HEART FAILURE, UNSPECIFIED Status: Acute Qualifiers: Congestive heart failure type: systolic Qualified Code(s): I50.23 - Acute on chronic systolic (congestive) heart failure Comment: ef of 25% (2) HTN (hypertension) Code(s): I10 - ESSENTIAL (PRIMARY) HYPERTENSION Status: Chronic Qualifiers: Hypertension type: essential hypertension Qualified Code(s): I10 - Essential (primary) hypertension (3) Demand ischemia of myocardium Code(s): I24.8 - OTHER FORMS OF ACUTE ISCHEMIC HEART DISEASE Status: Acute (4) Cardiomyopathy Code(s): I42.9 - CARDIOMYOPATHY, UNSPECIFIED Status: Suspected Qualifiers: Cardiomyopathy type: unspecified Qualified Code(s): I42.9 - Cardiomyopathy , unspecified (5) CAD (coronary artery disease) Code(s): I25.10 - ATHSCL HEART DISEASE OF [place] CORONARY ARTERY W/O ANG PCTRS Status: Acute Qualifiers: Coronary Disease-Associated Artery/Lesion type: [place] artery [place] vs. transplanted heart: [place] heart Associated angina: without angina Qualified Code(s): I25.10 - Atherosclerotic heart disease of [place] coronary artery without angina pectoris - Plan for medical mgmt of mild to mod cad -: is still on dobutamine drip with lasix -: has diuresed well -: d/w , ?likely dc plan in am -: optimize meds, creatinine this am is 1.5 * . Review of Systems - Medications/Allergies Allergies/Adverse Reactions: Allergies Allergy/AdvReac Type Severity Reaction Status Date / Time No Known Allergies Allergy Verified 08/24/17 20:35 Medications: Current Medications Acetaminophen (Tylenol) 650 mg PO Q4H PRN PRN Reason: Headache/Fever or Pain Acetaminophen/Codeine Phosphate (Tylenol #3) 1 tab PO Q4H PRN PRN Reason: Mild Pain (1-3) Acetaminophen/Codeine Phosphate (Tylenol #3) 2 tab PO Q4H PRN PRN Reason: Moderate Pain (4-6) Hydrocodone Bitart/Acetaminophen ([place] 10/325) 1 tab PO Q4H PRN PRN Reason: Severe Pain (7-10) Hydrocodone Bitart/Acetaminophen ([place] 5/325) 1 tab PO Q4H PRN PRN Reason: Moderate Pain (4-6) Al Hydroxide/Mg Hydroxide (Maalox Plus) 30 ml PO Q6H PRN PRN Reason: Heartburn or Indigestion Amlodipine Besylate (Norvasc) 5 mg PO NOW [facility] Stop: 08/28/17 16:00 Last Admin: 08/28/17 14:28 Dose: 5 mg Amlodipine Besylate (Norvasc) 5 mg PO DAILY [facility] Aspirin (Aspirin) 325 mg PO QA-[facility] Last Admin: 08/28/17 06:03 Dose: 325 mg Atorvastatin Calcium (Lipitor) 40 mg PO [facility] Last Admin: 08/27/17 21:04 Dose: 40 mg Calcium Carbonate (Tums) 1,000 mg PO Q4H PRN PRN Reason: Heartburn or Indigestion Last Admin: 08/27/17 02:16 Dose: 1,000 mg Dextrose/Water (Dextrose 50%) 25 gm SLOW IVP PRN PRN PRN Reason: Hypoglycemia Enoxaparin Sodium (Lovenox) 40 mg SC 0900 [facility] Last Admin: 08/28/17 06:03 Dose: Not Given Famotidine (Pepcid) 20 mg PO BID [facility] Last Admin: 08/28/17 06:02 Dose: 20 mg Furosemide (Lasix) 40 mg SLOW IVP 0600,1400 [facility] Last Admin: 08/28/17 14:28 Dose: 40 mg Glucagon (Glucagon) 1 mg IM PRN PRN PRN Reason: Hypoglycemia Dextrose/Water (D5w) 1,000 mls @ 0 mls/hr IV .Q0M PRN; As Directed PRN Reason: Hypoglycemia Dobutamine HCl/Dextrose (Dobutamine 500 Mg/250 Ml) 250 mls @ 6.515 mls/hr IVPB INF LISA; 2.5 MCG/KG/MIN PRN Reason: Protocol Stop: 08/29/17 07:00 Last Admin: 08/28/17 07:17 Dose: 250 mls Sodium Chloride (Normal Saline 0.9%) 200 mls @ 0 mls/hr IV ONE [facility] PRN Reason: As Directed Stop: 08/28/17 23:00 Insulin Human Lispro (Humalog) 0 units SC .MODERATE SLIDING SC PRN PRN Reason: Moderate Correctional Scale Last Admin: 08/27/17 18:14 Dose: 2 unit Metoprolol Tartrate (Lopressor) 25 mg PO BID [facility] Last Admin: 08/28/17 06:03 Dose: 25 mg Miscellaneous Information (Communication Order-Pharmacy) 0 each FS ONE [facility] Stop: 08/28/17 21:00 Last Admin: 08/28/17 10:55 Dose: 1 each Nitroglycerin (Nitrostat) 0.4 mg SL Q5MIN PRN PRN Reason: Chest Pain Ondansetron HCl (Zofran Odt) 4 mg PO Q6H PRN PRN Reason: Nausea/Vomiting Last Admin: 08/26/17 14:04 Dose: 4 mg Sacubitril/Valsartan (Entresto 24.5 Mg-25.5 Mg Tablet) 1 tab PO BID [facility] Sodium Chloride (Flush - Normal Saline) 10 ml IVF Q12HR [facility] Sodium Chloride (Flush - Normal Saline) 10 ml IVF PRN PRN PRN Reason: Saline Flush Tramadol HCl (Ultram) 50 mg PO Q6H PRN PRN Reason: Moderate Pain (4-6)
[2017-08-28] MEDS: HumaLOG 300 UNITS/3 ML VIAL SC PRN (18:21)
[2017-08-28] MEDS: Atorvastatin Calcium 40 MG TAB PO SCH (20:11)
[2017-08-29 05:50] LABS: Anion Gap 12 mmol/L (10-20); BUN (Urea Nitrogen) 22 mg/dL (8.9-20.6); Calc. Creatinine Clearance 66 mL/min (70-130); Calcium 8.7 mg/dL (7.8-10.44); Carbon Dioxide 32 mmol/L (22-29); Chloride 100 mmol/L (98-107); Estimated GFR-MDRD 45; Glucose 192 mg/dL (70-105); Potassium 3.9 mmol/L (3.5-5.1); Sodium 140 mmol/L (136-145)
[2017-08-29] MEDS: Furosemide 40 MG/4 ML VIAL SLOW IVP SCH (05:53)
[2017-08-29] MEDS: Enoxaparin Sodium 40 MG/0.4 ML SYRINGE SC SCH (08:26)
[2017-08-29] MEDS: Amlodipine 5 MG TAB PO SCH (08:27)
[2017-08-29] MEDS: Aspirin 325 MG TAB PO SCH (08:27)
[2017-08-29] MEDS: Famotidine 20 MG TAB PO SCH ×2 (08:27→20:13)
[2017-08-29] MEDS: Metoprolol Tartrate 25 MG TAB PO SCH ×2 (08:27→20:14)
[2017-08-29] MEDS: HumaLOG 300 UNITS/3 ML VIAL SC PRN ×2 (08:27→17:40)
[2017-08-29] MEDS: INSULIN DEGLUDEC 200 UNIT/ML SC SCH (09:00)
[2017-08-29] MEDS ORDERED: Amlodipine 5 MG TAB PO SCH (09:00)
--- NOTE | 2017-08-29 10:31 | PDOC.PN ---
- Subjective Encounter Start Date: 08/29/17 Encounter Start Time: 08:00 Subjective: no sob or palp -: feels good, is amb in hallway - Objective Resuscitation Status: Resuscitation Status FULL:Full Resuscitation MAR Reviewed: Yes Vital Signs & Weight: Vital Signs (12 hours) Temp Pulse Resp BP BP Pulse Ox 08/29/17 08:27 83 118/72 08/29/17 07:05 98.1 F 83 20 118/72 97 08/29/17 04:00 99.1 F 87 18 138/67 95 Weight Weight 175 lb 8 oz I&O: 08/28/17 08/29/17 08/30/17 06:59 06:59 06:59 Intake Total 1122 938 330 Output Total 2950 2650 450 Balance -1828 -1712 -120 Result Diagrams: 08/26/17 05:00 08/29/17 04:56 Additional Labs: Accuchecks 08/29/17 08/28/17 08/28/17 05:55 20:41 15:49 POC Glucose 158 H 110 202 H 08/28/17 11:22 POC Glucose 140 H Phys Exam - Physical Examination HEENT: PERRLA, moist MMs Neck: no JVD, supple Respiratory: no wheezing, no rales Cardiovascular: RRR, no significant murmur Gastrointestinal: soft, non-tender, positive bowel sounds Musculoskeletal: no edema, pulses present Neurological: non-focal, moves all 4 limbs Psychiatric: A&O x 3 Dx/Plan (1) CHF exacerbation Code(s): I50.9 - HEART FAILURE, UNSPECIFIED Status: Acute Qualifiers: Congestive heart failure type: systolic Qualified Code(s): I50.23 - Acute on chronic systolic (congestive) heart failure Comment: ef of 25% (2) HTN (hypertension) Code(s): I10 - ESSENTIAL (PRIMARY) HYPERTENSION Status: Chronic Qualifiers: Hypertension type: essential hypertension Qualified Code(s): I10 - Essential (primary) hypertension (3) Demand ischemia of myocardium Code(s): I24.8 - OTHER FORMS OF ACUTE ISCHEMIC HEART DISEASE Status: Acute (4) Cardiomyopathy Code(s): I42.9 - CARDIOMYOPATHY, UNSPECIFIED Status: Suspected Qualifiers: Cardiomyopathy type: unspecified Qualified Code(s): I42.9 - Cardiomyopathy , unspecified (5) CAD (coronary artery disease) Code(s): I25.10 - ATHSCL HEART DISEASE OF [place] CORONARY ARTERY W/O ANG PCTRS Status: Acute Qualifiers: Coronary Disease-Associated Artery/Lesion type: [place] artery [place] vs. transplanted heart: [place] heart Associated angina: without angina Qualified Code(s): I25.10 - Atherosclerotic heart disease of [place] coronary artery without angina pectoris - Plan hemostable -: has lost nearly 25lbs with diuresis -: may dc dobutamine if ok with cardio, switch to oral lasix -: dc plan per cardiology advice -: counselled reg dietary and med compliance * . Review of Systems - Medications/Allergies Allergies/Adverse Reactions: Allergies Allergy/AdvReac Type Severity Reaction Status Date / Time No Known Allergies Allergy Verified 08/24/17 20:35 Medications: Current Medications Acetaminophen (Tylenol) 650 mg PO Q4H PRN PRN Reason: Headache/Fever or Pain Acetaminophen/Codeine Phosphate (Tylenol #3) 1 tab PO Q4H PRN PRN Reason: Mild Pain (1-3) Acetaminophen/Codeine Phosphate (Tylenol #3) 2 tab PO Q4H PRN PRN Reason: Moderate Pain (4-6) Hydrocodone Bitart/Acetaminophen ([place] 10/325) 1 tab PO Q4H PRN PRN Reason: Severe Pain (7-10) Hydrocodone Bitart/Acetaminophen ([place] 5/325) 1 tab PO Q4H PRN PRN Reason: Moderate Pain (4-6) Al Hydroxide/Mg Hydroxide (Maalox Plus) 30 ml PO Q6H PRN PRN Reason: Heartburn or Indigestion Amlodipine Besylate (Norvasc) 5 mg PO DAILY [facility] Last Admin: 08/29/17 08:27 Dose: 5 mg Aspirin (Aspirin) 325 mg PO QA-[facility] Last Admin: 08/29/17 08:27 Dose: 325 mg Atorvastatin Calcium (Lipitor) 40 mg PO HS [facility] Last Admin: 08/28/17 20:11 Dose: 40 mg Calcium Carbonate (Tums) 1,000 mg PO Q4H PRN PRN Reason: Heartburn or Indigestion Last Admin: 08/27/17 02:16 Dose: 1,000 mg Dextrose/Water (Dextrose 50%) 25 gm SLOW IVP PRN PRN PRN Reason: Hypoglycemia Enoxaparin Sodium (Lovenox) 40 mg SC 0900 [facility] Last Admin: 08/29/17 08:26 Dose: 40 mg Famotidine (Pepcid) 20 mg PO BID [facility] Last Admin: 08/29/17 08:27 Dose: 20 mg Furosemide (Lasix) 40 mg PO DAILY [facility] Glucagon (Glucagon) 1 mg IM PRN PRN PRN Reason: Hypoglycemia Dextrose/Water (D5w) 1,000 mls @ 0 mls/hr IV .Q0M PRN; As Directed PRN Reason: Hypoglycemia Insulin Human Lispro (Humalog) 0 units SC .MODERATE SLIDING SC PRN PRN Reason: Moderate Correctional Scale Last Admin: 08/29/17 08:27 Dose: 2 unit Metoprolol Tartrate (Lopressor) 25 mg PO BID [facility] Last Admin: 08/29/17 08:27 Dose: 25 mg Nitroglycerin (Nitrostat) 0.4 mg SL Q5MIN PRN PRN Reason: Chest Pain Ondansetron HCl (Zofran Odt) 4 mg PO Q6H PRN PRN Reason: Nausea/Vomiting Last Admin: 08/26/17 14:04 Dose: 4 mg Insulin Degludec [ Tresiba Flextouch] 200 Units/ Ml 0 each SC DAILY [facility] Sacubitril/Valsartan (Entresto 24.5 Mg-25.5 Mg Tablet) 1 tab PO BID [facility] Sodium Chloride (Flush - Normal Saline) 10 ml IVF Q12HR [facility] Last Admin: 08/29/17 08:28 Dose: Not Given Sodium Chloride (Flush - Normal Saline) 10 ml IVF PRN PRN PRN Reason: Saline Flush Tramadol HCl (Ultram) 50 mg PO Q6H PRN PRN Reason: Moderate Pain (4-6)
--- NOTE | 2017-08-29 16:55 | PDOC.CTH ---
<Angeles Person - Last Filed: 08/29/17 16:53> Cardiology Progress Note - Subjective The pt seen and examined. No overnight events. No cardiac complaints. - Objective Vital Signs Temp Pulse Pulse Pulse Resp BP BP 08/29/17 12:26 86 88 129/72 08/29/17 11:42 83 22 H 08/29/17 08:27 83 118/72 08/29/17 07:05 98.1 F 83 20 BP BP Pulse Ox Pulse Ox 08/29/17 12:26 144/88 H 93 L 08/29/17 11:42 134/79 95 08/29/17 08:27 08/29/17 07:05 118/72 97 Weight 175 lb 8 oz 08/28/17 08/29/17 08/30/17 06:59 06:59 06:59 Intake Total 1122 938 330 Output Total 2950 2650 450 Balance -8278 -5742 -120 - Physical Examination General/Neuro: alert & oriented x3 Neck: no JVD present Lungs: CTA Heart: RRR Abdomen: soft Extremities: other: (2+ pitting edema aroud ankles) - Labs Result Diagrams: 08/26/17 05:00 08/29/17 04:56 Troponin/CKMB CK-MB (CK-2) 16.3 ng/mL (0-6.6) H* 08/25/17 19:26 Troponin I 0.052 ng/mL (< 0.028) H 08/25/17 19:26 - Assessment/Plan 1. Acute on chronic systolic HF - Echo on 08/24/17 showed EF 25-30%, global hypokenesis, mod MR, mod LAE, mild PI and TR and Lt large plural effusion and small pericardial effusion; On Lasix 40mg IV BID, ELSY, and BBlocker. Stopped Dobutamin IV drip and start Entresto 24/25.5 BID; cont. monitor; Possible Cardiac cath on 08/28/17 showed mild CAD 2. Abn. Troponin due to Demand ischemia of myocardium - stable; cont. monitor on tele 3. Lt large pleural effusion - stable with RA; on Lasix 40mg IV BID 4. HTN - Stable with Lisinopril 10mg qd and Metoprolol 25mg; cont. monitor 5. CKD stage 3 - stable 6. BLE Localized edema - improving per the pt's report 7. hyperlipidemia - on Statin 8. DM type 2 - ACHS BG check with Insulin SS; managed by PCP 9. Hx of ETOH abuse - 12-24 beers daily, quit in 2014 MAR reviewed Review of Systems - Review of Systems Constitutional: reports: no symptoms reported EENTM: reports: no symptoms reported Respiratory: reports: no symptoms reported Cardiac (ROS): reports: no symptoms reported ABD/GI: reports: no symptoms reported : reports: no symptoms reported Musculoskeletal: reports: no symptoms reported <Chris Serrano - Last Filed: 08/30/17 01:24> Cardiology Progress Note - Objective Vital Signs Temp Pulse Resp BP Pulse Ox 08/29/17 20:05 97.9 F 81 18 137/88 98 08/29/17 16:45 98.2 F 77 22 H 130/82 96 Weight 175 lb 8 oz 08/28/17 08/29/17 08/30/17 06:59 06:59 06:59 Intake Total 1122 938 866 Output Total 2950 8720 1800 Balance -1828 -1712 -934 - Labs Result Diagrams: 08/26/17 05:00 08/29/17 04:56 Troponin/CKMB CK-MB (CK-2) 16.3 ng/mL (0-6.6) H* 08/25/17 19:26 Troponin I 0.052 ng/mL (< 0.028) H 08/25/17 19:26 - Assessment/Plan The pt. was seen and eval. by me. I agree with the A/P by the METAL DRILL OPERATOR.
[2017-08-29] MEDS: Atorvastatin Calcium 40 MG TAB PO SCH (20:13)
[2017-08-29] MEDS: Sacubitril 24.5 MG/Valsartan 25.5 MG TABLET PO SCH (20:14)
[2017-08-30 05:34] LABS: Anion Gap 10 mmol/L (10-20); BUN (Urea Nitrogen) 26 mg/dL (8.9-20.6); Calc. Creatinine Clearance 59 mL/min (70-130); Calcium 8.8 mg/dL (7.8-10.44); Carbon Dioxide 33 mmol/L (22-29); Chloride 99 mmol/L (98-107); Estimated GFR-MDRD 40; Glucose 148 mg/dL (70-105); Potassium 3.8 mmol/L (3.5-5.1); Sodium 138 mmol/L (136-145)
--- NOTE | 2017-08-30 07:17 | PDOC.PN ---
- Subjective Encounter Start Date: 08/30/17 Encounter Start Time: 07:15 Subjective: no sob or edema - Objective Resuscitation Status: Resuscitation Status FULL:Full Resuscitation MAR Reviewed: Yes Vital Signs & Weight: Vital Signs (12 hours) Temp Pulse Resp BP Pulse Ox 08/30/17 04:00 98.2 F 84 18 137/78 95 08/29/17 20:05 97.9 F 81 18 137/88 98 Weight Weight 176 lb I&O: 08/29/17 08/30/17 08/31/17 06:59 06:59 06:59 Intake Total 938 866 Output Total 2650 1800 Balance -0049 -140 Result Diagrams: 08/26/17 05:00 08/30/17 04:49 Additional Labs: Accuchecks 08/30/17 08/29/17 08/29/17 05:19 20:04 16:35 POC Glucose 137 H 155 H 154 H 08/29/17 11:40 POC Glucose 129 H Phys Exam - Physical Examination Constitutional: NAD Neck: no JVD Respiratory: clear to auscultation bilateral Cardiovascular: RRR, no significant murmur Gastrointestinal: soft, positive bowel sounds Musculoskeletal: no edema, pulses present Dx/Plan (1) Acute on chronic systolic (congestive) heart failure Code(s): I50.23 - ACUTE ON CHRONIC SYSTOLIC (CONGESTIVE) HEART FAILURE Status : Acute (2) DM type 2 causing CKD stage 3 Code(s): E11.22 - TYPE 2 DIABETES MELLITUS W DIABETIC CHRONIC KIDNEY DISEASE; N18.3 - CHRONIC KIDNEY DISEASE, STAGE 3 (MODERATE) Status: Acute (3) CAD (coronary artery disease) Code(s): I25.10 - ATHSCL HEART DISEASE OF [place] CORONARY ARTERY W/O ANG PCTRS Status: Acute Qualifiers: Coronary Disease-Associated Artery/Lesion type: [place] artery [place] vs. transplanted heart: [place] heart Associated angina: without angina Qualified Code(s): I25.10 - Atherosclerotic heart disease of [place] coronary artery without angina pectoris (4) HTN (hypertension) Code(s): I10 - ESSENTIAL (PRIMARY) HYPERTENSION Status: Chronic Qualifiers: Hypertension type: essential hypertension Qualified Code(s): I10 - Essential (primary) hypertension (5) Cardiomyopathy Code(s): I42.9 - CARDIOMYOPATHY, UNSPECIFIED Status: Suspected Qualifiers: Cardiomyopathy type: unspecified Qualified Code(s): I42.9 - Cardiomyopathy , unspecified - Plan cont current plan of care discuss DC with cardiology -: life vest ordered, will not be available til tomorrow * .
[2017-08-30] MEDS: Aspirin 325 MG TAB PO SCH (08:56)
[2017-08-30] MEDS: Amlodipine 5 MG TAB PO SCH (08:56)
[2017-08-30] MEDS: Sacubitril 24.5 MG/Valsartan 25.5 MG TABLET PO SCH ×2 (08:56→21:20)
[2017-08-30] MEDS: Famotidine 20 MG TAB PO SCH ×2 (08:57→21:20)
[2017-08-30] MEDS: Metoprolol Tartrate 25 MG TAB PO SCH (08:57)
[2017-08-30] MEDS: Furosemide 40 MG TAB PO SCH (08:57)
[2017-08-30] MEDS: Enoxaparin Sodium 40 MG/0.4 ML SYRINGE SC SCH (08:57)
[2017-08-30] MEDS: INSULIN DEGLUDEC 200 UNIT/ML SC SCH (09:01)
--- NOTE | 2017-08-30 10:22 | PDOC.CTH ---
<Angeles Person - Last Filed: 08/30/17 16:21> Cardiology Progress Note - Subjective The pt seen and examined. No overnight events. No cardiac complaints. He was walking with PT and denied any cardiac complaints or SOB at this time. - Objective Vital Signs Temp Pulse Resp BP Pulse Ox 08/30/17 08:50 97.7 F 79 18 123/71 93 L 08/30/17 04:00 98.2 F 84 18 137/78 95 Weight 176 lb 08/29/17 08/30/17 08/31/17 06:59 06:59 06:59 Intake Total 938 866 Output Total 2650 1800 Balance -5228 -656 - Physical Examination General/Neuro: alert & oriented x3 Neck: no JVD present Lungs: CTA Heart: RRR Abdomen: soft Extremities: other: (1+ pitting edema to BL ankles) - Telemetry Telemetry Rhythm: SR - Labs Result Diagrams: 08/26/17 05:00 08/30/17 04:49 Troponin/CKMB CK-MB (CK-2) 16.3 ng/mL (0-6.6) H* 08/25/17 19:26 Troponin I 0.052 ng/mL (< 0.028) H 08/25/17 19:26 - Assessment/Plan 1. Acute on chronic systolic HF - Echo on 08/24/17 showed EF 25-30%, global hypokenesis, mod MR, mod LAE, mild PI and TR and Lt large plural effusion and small pericardial effusion; On Lasix 40mg PO daily, BBlocker, and Entresto 24/ 25.5mg BID; Cardiac cath on 08/28/17 showed mild CAD; D/c home with Lifevest and outpt CHF clinic referral 2. Abn. Troponin due to Demand ischemia of myocardium - stable; cont. monitor on tele 3. Lt large pleural effusion - stable with RA; on Lasix 40mg PO daily 4. HTN - Stable with Entresto and Metoprolol 25mg; cont. monitor 5. CKD stage 3 - slightly worsen today 6. BLE Localized edema - improving; cont. Lasix and TEDs 7. hyperlipidemia - on Statin 8. DM type 2 - ACHS BG check with Insulin SS; managed by PCP 9. Hx of ETOH abuse - 12-24 beers daily, quit in 2014 10. Non-Ischemic Cardiomyopathy - Echo on 08/24/17 showed EF 25-30%, global hypokenesis; D/c home with Lifevest and outpt CHF clinic MAR reviewed * D/c home with LifeVest and Out pt CHF clinic referral * From Cardiac standpoint, the pt is stable to d/c home; The pt will f/u with Dr Serrano' office within 2 wks and within 4 wks from d/c hospital, the pt will have Echo. * CHF discharge meds: LifeVest, Entresto 24/25.5 BID (2wks sample given to the pt today), Metoprolol 25mg, ASA 325mg, * Metoprolol tartrate 25mg BID was changed to Coreg 12.5mg BID due to CHF performance measures. Review of Systems - Review of Systems Constitutional: reports: no symptoms reported EENTM: reports: no symptoms reported Respiratory: reports: no symptoms reported Cardiac (ROS): reports: no symptoms reported ABD/GI: reports: no symptoms reported : reports: no symptoms reported Musculoskeletal: reports: no symptoms reported Skin: reports: no symptoms reported Neurological: reports: no symptoms reported <Chris Serrano - Last Filed: 08/31/17 09:40> Cardiology Progress Note - Objective Vital Signs Temp Pulse Resp BP BP Pulse Ox 08/31/17 09:25 101/59 L 08/31/17 07:45 97.9 F 86 18 101/59 L 96 08/31/17 05:50 85 18 138/86 96 Weight 174 lb 11.2 oz 08/30/17 08/31/17 09/01/17 06:59 06:59 06:59 Intake Total 866 840 240 Output Total 1800 2350 Balance -934 -1510 240 - Labs Result Diagrams: 08/26/17 05:00 08/31/17 05:03 Troponin/CKMB CK-MB (CK-2) 16.3 ng/mL (0-6.6) H* 08/25/17 19:26 Troponin I 0.052 ng/mL (< 0.028) H 08/25/17 19:26 - Assessment/Plan Pt. seen and eval. by me. I agree with the A/P by the MACHINING MANAGER. Chest clear. RRR. no edema. Plan to d/c after Life- Vest applied. F/U with me in 2-3 weeks.
[2017-08-30] MEDS: HumaLOG 300 UNITS/3 ML VIAL SC PRN (12:18)
[2017-08-30] MEDS: Carvedilol 6.25 MG TAB PO SCH (17:02)
[2017-08-30] MEDS: Atorvastatin Calcium 40 MG TAB PO SCH (21:20)
--- NOTE | 2017-08-30 21:31 | DIS ---
DATE OF ADMISSION: 08/24/2017 DATE OF DISCHARGE: 08/30/2017 DISPOSITION: Discharged home. PRIMARY CARE PROVIDER: Dr. Neeraj Howe. FINAL DIAGNOSES: Acute on chronic systolic heart failure, cardiomyopathy, ejection fraction 25%-30%, type 2 diabetes with stage 3 chronic kidney disease, coronary artery disease, 3-vessel demand ischem ia. DISCHARGE MEDICATIONS: Insulin degludec 40 units subcutaneous daily, Lipitor 40 mg a day, Entresto _ ____ one b.i.d., metoprolol 25 mg twice a day, Lasix 40 mg a day, aspirin 325 mg a day, amlodipine 5 mg a day. ALLERGIES: No known drug allergies. PENDING AT THE TIME OF DISCHARGE: Nothing. CODE STATUS: FULL. HOSPITAL COURSE: The patient is referred to the [facility] by Dr. Serrano with a direct admit for congestive heart failure. He has a history of lower extremity edema. Bedside echo showed 25% EF. He had bilateral rales in the bases, normal S1 and S2, regular rate and rhythm, 2+ edema. I nitial laboratory: Sodium 143, potassium 5.1, chloride 111, bicarbonate 25, BUN 32, creatinine 1.3, troponin was elevated at 0.057. BNP 741. The patient was on lisinopril, metoprolol was added. Dr. Serrano was consulted. Accu-Chek, sliding scales, were done. He was continued on Lasix and Zaroxolyn. Cardiac catheterization done on 08/24/2017 showed EF 25%-30%, 3-vessel coronary artery disease. The patient was eventually placed on Entresto and continued on Lipitor and metoprolol. The patient impr kirill dramatically during his hospital stay. His CBC remained normal white count 5.4 to 7.0, hemoglob in 11.4-12.2, platelet count 137, 117, 127. With diuresis, his creatinine 1.31, 1.61, 1.62, 1.53. S odium and potassium remained normal. Blood sugar remained 100-200. A LifeVest has been ordered. It will be placed on the patient prior to discharge. FOLLOWUP: Two weeks with Dr. Serrano; 1 week with primary care provider, Dr. Howe. As mentioned before, consultations, Dr. Tai Serrano. PROCEDURES: Cardiac catheterization, 08/24/2017. Thirty-five minutes spent preparing this discharge. Prescriptions have been written.
[2017-08-31 05:33] LABS: Anion Gap 10 mmol/L (10-20); BUN (Urea Nitrogen) 32 mg/dL (8.9-20.6); Calc. Creatinine Clearance 55 mL/min (70-130); Calcium 8.5 mg/dL (7.8-10.44); Carbon Dioxide 31 mmol/L (22-29); Chloride 102 mmol/L (98-107); Estimated GFR-MDRD 37; Glucose 125 mg/dL (70-105); Potassium 3.9 mmol/L (3.5-5.1); Sodium 139 mmol/L (136-145)
[2017-08-31] MEDS: Aspirin 325 MG TAB PO SCH (09:24)
[2017-08-31] MEDS: Carvedilol 6.25 MG TAB PO SCH (09:25)
[2017-08-31] MEDS: Amlodipine 5 MG TAB PO SCH (09:25)
[2017-08-31] MEDS: Enoxaparin Sodium 40 MG/0.4 ML SYRINGE SC SCH (09:26)
[2017-08-31] MEDS: Famotidine 20 MG TAB PO SCH (09:26)
[2017-08-31] MEDS: Furosemide 40 MG TAB PO SCH (09:26)
[2017-08-31] MEDS: INSULIN DEGLUDEC 200 UNIT/ML SC SCH (09:27)
[2017-08-31] MEDS: Sacubitril 24.5 MG/Valsartan 25.5 MG TABLET PO SCH (09:27)
--- NOTE | 2017-08-31 12:35 | PDOC.CTH ---
<Angeles Person - Last Filed: 08/31/17 12:32> Cardiology Progress Note - Subjective The pt seen and examined. No overnight events. No cardiac complaints. He is still waiting for Lifevest. Questions were answered today. - Objective Vital Signs Temp Pulse Pulse Pulse Resp BP BP 08/31/17 10:54 08/31/17 10:48 90 89 95/59 L 08/31/17 09:25 101/59 L 08/31/17 07:45 97.9 F 86 18 08/31/17 05:50 85 18 BP BP Pulse Ox Pulse Ox Pulse Ox 08/31/17 10:54 96 08/31/17 10:48 99/62 98 98 08/31/17 09:25 08/31/17 07:45 101/59 L 96 08/31/17 05:50 138/86 96 Weight 174 lb 11.2 oz 08/30/17 08/31/17 09/01/17 06:59 06:59 06:59 Intake Total 866 840 240 Output Total 1800 2350 Balance -934 -1510 240 - Physical Examination General/Neuro: alert & oriented x3 Neck: no JVD present Lungs: CTA Heart: RRR Abdomen: soft Extremities: other: (1+ pitting edema to Bilat. ankles) - Telemetry Telemetry Rhythm: SR - Labs Result Diagrams: 08/26/17 05:00 08/31/17 05:03 Troponin/CKMB CK-MB (CK-2) 16.3 ng/mL (0-6.6) H* 08/25/17 19:26 Troponin I 0.052 ng/mL (< 0.028) H 08/25/17 19:26 - Assessment/Plan 1. Acute on chronic systolic HF - Echo on 08/24/17 showed EF 25-30%, global hypokenesis, mod MR, mod LAE, mild PI and TR and Lt large plural effusion and small pericardial effusion; On Lasix 40mg PO daily, BBlocker, and Entresto 24/ 25.5mg BID; Cardiac cath on 08/28/17 showed mild CAD; D/c home with Lifevest and outpt CHF clinic referral 2. Abn. Troponin due to Demand ischemia of myocardium - stable; cont. monitor on tele 3. Lt large pleural effusion - stable with RA; on Lasix 40mg PO daily 4. HTN - Stable with Entresto and Metoprolol 25mg; He complained of dizziness this AM; Instructed to have a glass of fluid and rest for 30 mins; cont. monitor 5. CKD stage 3 - slightly worsen today; Outpt Renal referral 6. BLE Localized edema - improving; cont. Lasix and TEDs 7. hyperlipidemia - on Statin 8. DM type 2 - ACHS BG check with Insulin SS; managed by PCP 9. Hx of ETOH abuse - 12-24 beers daily, quit in 2014 10. Non-Ischemic Cardiomyopathy - Echo on 08/24/17 showed EF 25-30%, global hypokenesis; D/c home with Lifevest and outpt CHF clinic MAR reviewed * D/c home with LifeVest and Out pt CHF clinic referral * From Cardiac standpoint, the pt is stable to d/c home; The pt will f/u with Dr Serrano' office within 2 wks and within 4 wks from d/c hospital, the pt will have Echo. * CHF discharge meds: LifeVest, Entresto 24/25.5 BID (2wks sample given to the pt today), Metoprolol 25mg, ASA 325mg, * Metoprolol tartrate 25mg BID was changed to Coreg 12.5mg BID due to CHF performance measures. * Outpt Renal referral Review of Systems - Review of Systems Constitutional: reports: no symptoms reported EENTM: reports: no symptoms reported Respiratory: reports: no symptoms reported Cardiac (ROS): reports: no symptoms reported ABD/GI: reports: no symptoms reported : reports: no symptoms reported <Chris Serrano - Last Filed: 08/31/17 15:54> Cardiology Progress Note - Objective Vital Signs Temp Pulse Pulse Pulse Resp BP BP 08/31/17 12:00 97.2 F L 82 18 08/31/17 10:54 08/31/17 10:48 90 89 95/59 L 08/31/17 09:25 101/59 L 08/31/17 07:45 97.9 F 86 18 08/31/17 05:50 85 18 BP BP Pulse Ox Pulse Ox Pulse Ox 08/31/17 12:00 97/58 L 97 08/31/17 10:54 96 08/31/17 10:48 99/62 98 98 08/31/17 09:25 08/31/17 07:45 101/59 L 96 08/31/17 05:50 138/86 96 Weight 174 lb 11.2 oz 08/30/17 08/31/17 09/01/17 06:59 06:59 06:59 Intake Total 866 840 240 Output Total 1800 2350 Balance -934 -1510 240 - Labs Result Diagrams: 08/26/17 05:00 08/31/17 05:03 Troponin/CKMB CK-MB (CK-2) 16.3 ng/mL (0-6.6) H* 08/25/17 19:26 Troponin I 0.052 ng/mL (< 0.028) H 08/25/17 19:26 - Assessment/Plan Pt. seen and eval. by me. I agree with the above A/P by the SPECIAL DELIVERY CLERK as outlined above. We will follow him in the outpt. setting.
[2017-08-31 12:55] VITALS: BP 97/58; TEMP 97.2
== END 2017-08-31 14:24 | disposition home or self-care (01) | DRG 286 ==
LOC: 2NO 17:33
PROVIDERS: ADMIT Internal Medicine; ATTEND Internal Medicine
PROC: 4A023N7 Measurement of Cardiac Sampling and Pressure, Left Heart, Percutaneous Approach (ICD-10-PCS; principal; 2017-08-28)
PROC: B2111ZZ Fluoroscopy of Multiple Coronary Arteries using Low Osmolar Contrast (ICD-10-PCS; 2017-08-28)
PROC: B2151ZZ Fluoroscopy of Left Heart using Low Osmolar Contrast (ICD-10-PCS; 2017-08-28)
DX: I13.0 Hypertensive heart and chronic kidney disease with heart failure and stage 1 through stage 4 chronic kidney disease, or unspecified chronic kidney disease (principal); I50.23 Acute on chronic systolic (congestive) heart failure; E11.22 Type 2 diabetes mellitus with diabetic chronic kidney disease; I24.8 Other forms of acute ischemic heart disease; N18.3 Chronic kidney disease, stage 3 (moderate); E11.319 Type 2 diabetes mellitus with unspecified diabetic retinopathy without macular edema; Z79.4 Long term (current) use of insulin; I25.5 Ischemic cardiomyopathy; I25.10 Atherosclerotic heart disease of native coronary artery without angina pectoris; I42.9 Cardiomyopathy, unspecified
CPT/HCPCS: 36415; 36416; 71045; 80048; 80061; 80076; 82553; 83036; 83735; 83880; 84484; 84550; 85025; 90471; 90682; 93458; 93798; 94760; A4216; C1769; G0008; J1250; J1644; J1650; J1940; Q0162; Q2036

== ENCOUNTER 2018-06-14 12:38 | Inpatient (IN) | payer OTHER, BC ==
[~2018-06-14 12:38] MED LIST: Heparin 10,000 UNITS/ 10 ML VIAL ONE
[2018-06-14 13:45] LABS: Troponin I 0.036 ng/mL (< 0.028)
[2018-06-14] MEDS ORDERED: HumaLOG 300 UNITS/3 ML VIAL SC PRN ×2 (14:21)
[2018-06-14] MEDS ORDERED: Dextrose 5% in Water 1,000 ML IV PRN (14:21)
[2018-06-14] MEDS ORDERED: Guaifenesin DM 100-10/5 ML UDCUP PO PRN (14:21)
[2018-06-14] MEDS ORDERED: Ondansetron PF 4 MG/2 ML Vial IVP PRN (14:21)
[2018-06-14] MEDS ORDERED: Acetaminophen 325 MG TAB PO PRN (14:21)
[2018-06-14] MEDS ORDERED: Dextrose 50% Abboject 50 ML SYRINGE SLOW IVP PRN (14:21)
[2018-06-14] MEDS: Carvedilol 6.25 MG TAB PO SCH (16:01)
[2018-06-14] MEDS ORDERED: cloNIDine 0.2 MG TAB PO SCH (17:45)
[2018-06-14] MEDS ORDERED: Amlodipine 10 MG TAB PO SCH (17:45)
[2018-06-14 17:50] LABS: Troponin I 0.044 ng/mL (< 0.028)
--- NOTE | 2018-06-14 19:08 | CON ---
DATE OF CONSULTATION: 06/14/2018 REASON FOR CONSULTATION: Acute on chronic systolic heart failure. HISTORY OF PRESENT ILLNESS: Ms. Bryant is a 38-year-old gentleman who is a patient of Dr. Tai Serrano . He was last seen and evaluated in the office on 06/03/2018. He has had issues with noncompliance as well documented in his previous chart. He did undergo coronary angiography in 2018 that showed a moderate underlying coronary artery disease with normal LVEF. Last echo dated 02/11/2018 with LVEF o f 55%-60%. Mr. Bryant has had worsening kidney function. He has had lower extremity edema in addition to short ness of breath. His creatinine and GFR are 5.4 and 12 respectively. His creatinine was in the 1.2 r judith earlier in the year. PAST MEDICAL HISTORY: Moderate coronary artery disease, noncompliance, diabetes mellitus, hyperlipid [place]ia, hypertension, underlying kidney disease. ALLERGIES: None. HOME MEDICATIONS: Include atorvastatin, aspirin, carvedilol, , Entresto, Lasix and metolazone. REVIEW OF SYSTEMS: 10-point review of systems reviewed and as above, otherwise negative. PHYSICAL EXAMINATION: GENERAL: Patient is a pleasant male who is in no acute distress. The patient appears his stated age . VITAL SIGNS: Blood pressure 181/102, pulse 95, temperature 98. NEUROLOGIC: The patient is alert and oriented times 3 with no focal neurologic deficits. HEENT: Sclerae without icterus. Mouth has moist mucous membranes with normal pallor. NECK: No JVD. Carotid upstroke brisk. No bruits bilaterally. LUNGS: Clear to auscultation with unlabored respirations. BACK: No scoliosis or kyphosis. CARDIAC: Regular rate and rhythm with normal S1 and S2. No S3 or S4 noted. No significant rubs, mu rmurs, thrills, or gallops noted throughout the precordium. PMI is not displaced. There is no gretchen ternal heave. ABDOMEN: Soft, nontender, nondistended. No peritoneal signs present. No hepatosplenomegaly. No ab normal striae. EXTREMITIES: 2+ pitting edema noted bilaterally. SKIN: No gross abnormalities. PERTINENT LABORATORY DATA: Sodium 141, 4.6, BUN 50, creatinine 5.4 with GFR of 12. Troponin 0 .036 with a CK-MB of 35. Hemoglobin 9.9. IMPRESSION: 1. Lower extremity edema. 2. Shortness of breath. 3. Acute on chronic kidney disease. RECOMMENDATIONS: From a CV standpoint, Mr. Bryant's LVEF was felt to be normal. His symptoms are l ikely related to advancing kidney disease. His last echo was noted 3-4 months ago. We recommend rep eating his echo to assess LV function. Dr. Vieira, his Nephrology has been consulted. Entresto has been discontinued. May also consider hydralazine for better blood pressure control.
--- NOTE | 2018-06-14 19:24 | HP ---
REASON FOR ADMISSION: Congestive heart failure exacerbation, acute kidney injury on top of chronic kidney disease stage 4. HISTORY OF PRESENT ILLNESS: The patient gives history of shortness of breath from the last two days. He has had progressive swelling of both lower extremities. He developed retrosternal chest pain which was 4/10 in intensity with no radiation yesterday and got relieved. This morning, this pain became worse and it was very sore and felt nauseated as well. His blood pressure was 187/120 with a pulse rate of 109 at home. The patient is known to be noncompliant with his diet and eats salty food and sweet foods as well. This is confirmed by his at bedside. He is very compliant with his medications and he closely follows up with Dr. Serrano and Dr. Vieira for Nephrology. Currently, has no chest pain or palpitation as of now. No complaints of fever, cough, or expectoration. 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 CURRENT MEDICATIONS: Patient is on aspirin 325 mg p.o. daily, Coreg 12.5 mg twice daily, Lasix 80 mg twice daily, Lipitor 40 mg p.o. at bedtime. He has been taken of Entresto recently due to worsening renal function. ALLERGIES: No known drug allergies. PERSONAL HISTORY: Does not abuse alcohol or drugs. No history of smoking. FAMILY HISTORY: Paternal grandparents have had history of coronary artery disease. No premature coronary artery disease in the family. REVIEW OF SYSTEMS: The following complete review of systems was negative, unless otherwise mentioned in the HPI or below: Constitutional: Weight loss or gain, ability to conduct usual activities. Skin: Rash, itching. Eyes: Double vision, pain. ENT/Mouth: Nose bleeding, neck stiffness, pain, tenderness. Cardiovascular: Palpitations, dyspnea on exertion, orthopnea. Respiratory: Shortness of breath, wheezing, cough, hemoptysis, fever or night sweats. Gastrointestinal: Poor appetite, abdominal pain, heartburn, nausea, vomiting, constipation, or diarrhea. Genitourinary: Urgency, frequency, dysuria, nocturia. Musculoskeletal: Pain, swelling. Neurologic/Psychiatric: Anxiety, depression. Allergy/Immunologic: Skin rash, bleeding tendency. PHYSICAL EXAMINATION: GENERAL: Patient is a 38-year-old male who is currently not in any acute distress. VITAL SIGNS: Blood pressure 160/94, pulse 96 per minute, respiratory rate 18 per minute, temperature 98.8 degrees Fahrenheit, saturating 98% on room air. NECK: Supple, no elevated JVD. EYES: Extraocular muscles intact. Pupils reacting to light. ORAL CAVITY: Mucous membranes are moist. No exudates or congestion. CARDIOVASCULAR SYSTEM: S1, S2 heard. Regular rhythm. RESPIRATORY SYSTEM: Air entry 1+ bilaterally. There are rales plus in the infrascapular area. ABDOMEN: Soft, bowel sounds heard. No tenderness, rigidity or guarding. EXTREMITIES: There is peripheral edema, no calf tenderness. VASCULAR SYSTEM: Peripheral pulses 1+ bilateral, no ischemic ulcerations or gangrene. CENTRAL NERVOUS SYSTEM: No gross focal deficits noted. Patient is alert, awake , and oriented well. PSYCHIATRIC SYSTEM: The patient's mood is euthymic. No hallucinations or delusions. LABORATORY DATA AND IMAGING DATA: White count of 6, hemoglobin and hematocrit 10 and 30, MCV is 84 with platelet count of 171 and 71% neutrophils. Serum bicarbonate is 20, BUN 50, creatinine 5.47, serum glucose 147. Liver enzymes within normal limits. Albumin is 2.6, CK-MB 35. Troponin I is indeterminate peaking up to 0.04. BNP is 933. Chest x-ray done shows pulmonary vascular congestion with bilateral pleural effusions. EKG done shows normal sinus rhythm at 95 beats per minute. There are nonspecific ST-T wave changes. CLINICAL IMPRESSION AND PLAN: The patient will be admitted to telemetry for acute on chronic congestive heart failure exacerbation with ejection fraction of around 25%. He also has chest pain with history of 3-vessel coronary artery disease. Patient likely will need to go on dialysis. He is pretty much very close to it with volume overload at present needing diuresis. He will be on Lasix 80 mg IV q.12 hourly. We will continue his aspirin, Coreg, atorvastatin, and Norvasc as before. We will also continue his Tresiba and insulin coverage a.c. and at bedtime. Echo with 2D Doppler for current LV function will be obtained. We will consult his marketing production specialist, Dr. Serrano and Dr. Vieira for Nephrology as well. If his ejection fraction is low, then patient might be a candidate for AICD, but patient also has ischemic cardiomyopathy in addition to low ejection fraction. Code status was discussed with patient and he is a FULL CODE. MTDD
[2018-06-14] MEDS: hydrALAZINE 25 MG TAB PO SCH (20:38)
[2018-06-14] MEDS: Atorvastatin Calcium 40 MG TAB PO SCH (20:38)
[2018-06-14] MEDS: Nitroglycerin 2% Ointment 1 INCH/1 GM Packet TOP SCH (22:23)
[2018-06-15 06:02] LABS: #Eosinphils 0.2 thou/uL (0.0-0.7); #Lymphocytes 1.1 thou/uL (1.20-3.40); #Monocytes 0.4 thou/uL (0.11-0.59); #Neutrophils 3.3 thou/uL (1.40-6.50); %Basophils 0.8 % (0.0-1.0); %Eosinophils 3.8 % (0.0-10.0); %Lymphocytes 21.9 % (21.0-51.0); %Monocytes 8.2 % (0.0-10.0); %Neutrophils 65.3 % (42.0-75.0); Hemoglobin 9.2 g/dL (14.0-18.0); Mean Corpuscular HGB CONC 32.1 g/dL (32.0-36.0); Mean Corpuscular Hemoglobin 29.4 pg (27.0-31.0); Mean Corpuscular Volume 91.5 fL (78.0-98.0); Mean Platelet Volume 10.7 fL (7.4-10.4); Platelet Count 138 thou/uL (130-400); RBC Distribution Width 11.4 % (11.5-14.5); Red Blood Cell (RBC) Count 3.15 mill/uL (4.70-6.10); White Blood Cell (WBC) Count 5.1 thou/uL (4.8-10.8)
[2018-06-15 06:13] LABS: Albumin 2.4 g/dL (3.5-5.0); Anion Gap 12 mmol/L (10-20); BUN (Urea Nitrogen) 53 mg/dL (8.9-20.6); BUN/Creatinine Ratio 9.57; Calc. Creatinine Clearance 22 mL/min (70-130); Calcium 7.5 mg/dL (7.8-10.44); Carbon Dioxide 22 mmol/L (22-29); Cardiac Risk 3.8 (Less than 4.5); Chloride 111 mmol/L (98-107); Cholesterol 125 mg/dl (< 200 Desired); Estimated GFR-MDRD 11; Glucose 165 mg/dL (70-105); HDL Cholesterol 33 mg/dL (>60 Neg Risk); LDL Cholesterol, Calculated 61 mg/dL; Phosphorus 5.1 mg/dL (2.3-4.7); Potassium 4.7 mmol/L (3.5-5.1); Sodium 140 mmol/L (136-145); Triglycerides 157 mg/dL (Less than 150)
[2018-06-15] MEDS: Furosemide 100 MG/10 ML VIAL SLOW IVP SCH ×2 (06:28→13:38)
[2018-06-15] MEDS: cloNIDine 0.2 MG TAB PO SCH ×4 (06:29→22:19)
[2018-06-15] MEDS: Nitroglycerin 2% Ointment 1 INCH/1 GM Packet TOP SCH ×3 (06:32→22:20)
[2018-06-15 07:39] LABS: HIV (1/2) Antibody/Antigen Non-Reactive (NonReactive); HIV 1/2 INDEX 0.21 S/CO (<1.00)
[2018-06-15 07:53] LABS: Hep C IgG Ab Non-Reactive (NonReactive); Hep C Index 0.08 S/CO (0-0.79)
[2018-06-15] MEDS: Carvedilol 6.25 MG TAB PO SCH ×2 (08:10→15:51)
[2018-06-15] MEDS: Amlodipine 10 MG TAB PO SCH (08:10)
[2018-06-15] MEDS: hydrALAZINE 25 MG TAB PO SCH ×2 (08:11→22:19)
[2018-06-15] MEDS: Famotidine 20 MG TAB PO SCH (08:11)
[2018-06-15] MEDS ORDERED: Amlodipine 5 MG TAB PO SCH (09:00)
[2018-06-15] MEDS ORDERED: INSULIN DEGLUDEC 40 UNIT SQ SCH (09:00)
[2018-06-15] MEDS: Enoxaparin Sodium 30 MG/0.3 ML SYRINGE SC SCH (09:24)
[2018-06-15] MEDS: Insulin Glargine 40 UNITS in Pre-Filled Syringe SC SCH (09:24)
--- NOTE | 2018-06-15 09:37 | PDOC.PN ---
- Subjective Encounter Start Date: 06/15/18 Encounter Start Time: 09:37 Subjective: awaiting echo and vein mapping, swollen LE - Objective Resuscitation Status: Resuscitation Status FULL:Full Resuscitation MAR Reviewed: Yes Vital Signs & Weight: Vital Signs (12 hours) Temp Pulse Resp BP Pulse Ox 06/15/18 07:29 97.8 F 85 16 143/77 H 98 06/15/18 07:18 94 L 06/15/18 06:26 84 16 141/75 H 06/15/18 04:00 98.0 F 83 18 117/64 93 L 06/14/18 23:56 84 20 116/61 93 L 06/14/18 22:22 84 16 122/65 94 L Weight Weight 189 lb 9.6 oz I&O: 06/14/18 06/15/18 06/16/18 06:59 06:59 06:59 Intake Total 770 Output Total 550 Balance 220 Result Diagrams: 06/15/18 05:01 06/15/18 05:01 Additional Labs: Accuchecks 06/15/18 06/14/18 06/14/18 06:37 20:43 16:48 POC Glucose 162 H 170 H 121 H Phys Exam - Physical Examination HEENT: PERRLA, moist MMs, sclera anicteric, TM's clear, oral pharynx no lesions , 2+ tonsils Neck: no nodes, no JVD, supple, full ROM Respiratory: no wheezing, no rales, no rhonchi, clear to auscultation bilateral Cardiovascular: RRR, no significant murmur, no rub Gastrointestinal: soft, non-tender, no distention, positive bowel sounds Musculoskeletal: edema present SIGNIFICANT PEDAL EDEMA Neurological: non-focal, normal sensation, moves all 4 limbs Dx/Plan (1) Acute on chronic renal failure Code(s): N17.9 - ACUTE KIDNEY FAILURE, UNSPECIFIED; N18.9 - CHRONIC KIDNEY DISEASE, UNSPECIFIED Status: Acute Qualifiers: Chronic kidney disease stage: stage 5, not on chronic dialysis Comment: Plans to initiate dialysis, now on Lasix. Venous mapping, renal US planned (2) Diabetes Code(s): E11.9 - TYPE 2 DIABETES MELLITUS WITHOUT COMPLICATIONS Status: Chronic Qualifiers: Diabetes mellitus communications professional insulin use: without communications professional use Diabetes mellitus complication status: with kidney complications Diabetes mellitus complication detail: with chronic kidney disease Chronic kidney disease stage : stage 5, not on chronic dialysis Comment: SS insulin (3) Acute on chronic systolic (congestive) heart failure Code(s): I50.23 - ACUTE ON CHRONIC SYSTOLIC (CONGESTIVE) HEART FAILURE Status : Acute Comment: Low EF 25-30%, STOPPED ENtresto as renal function has declined rapidly (4) CAD (coronary artery disease) Code(s): I25.10 - ATHSCL HEART DISEASE OF [place] CORONARY ARTERY W/O ANG PCTRS Status: Acute Qualifiers: Coronary Disease-Associated Artery/Lesion type: [place] artery [place] vs. transplanted heart: [place] heart Associated angina: without angina Qualified Code(s): I25.10 - Atherosclerotic heart disease of [place] coronary artery without angina pectoris Comment: continue aspirin and statin (5) Demand ischemia of myocardium Code(s): I24.8 - OTHER FORMS OF ACUTE ISCHEMIC HEART DISEASE Status: Acute (6) HTN (hypertension) Code(s): I10 - ESSENTIAL (PRIMARY) HYPERTENSION Status: Chronic Qualifiers: Hypertension type: essential hypertension Qualified Code(s): I10 - Essential (primary) hypertension Comment: Continue Amlodipine, Cravedilol, Clonidine (7) Cardiomyopathy Code(s): I42.9 - CARDIOMYOPATHY, UNSPECIFIED Status: Chronic Qualifiers: Cardiomyopathy type: ischemic Qualified Code(s): I25.5 - Ischemic cardiomyopathy - Plan cont current plan of care, DVT proph w/lovenox, DVT proph w/SCDs * .
[2018-06-15] MEDS ORDERED: CEFAZOLIN/Water 2 GM/20 ML SYRINGE SLOW IVP SCH (10:00)
[2018-06-15] MEDS ORDERED: CEFAZOLIN 2 GM/50 ML-DEXTROSE 2 GM in Premix Bag 1 BAG IVPB SCH (10:15)
--- NOTE | 2018-06-15 10:20 | HP ---
HISTORY OF PRESENT ILLNESS: Mr. Christiano Bryant is a 38-year-old male patient admitted by Dr. Jamaal Vieira to the Hospitalist to initiate dialysis. He has a right antecubital IV, which I have asked him to immediately remove. He has undergone ultrasound vein mapping, results are pending. ALLERGIES: None. TOBACCO: None. ALCOHOL: None. MEDICATIONS: Furosemide 40 mg a day, carvedilol 25 mg b.i.d., aspirin 325 mg a day, atorvastatin 40 mg a day, insulin 48 units subcutaneous daily. PAST SURGICAL HISTORY: Noncontributory. PAST MEDICAL HISTORY: The patient has a history of a cardiomyopathy with 25%-30% ejection fraction, diabetic retinopathy, chronic kidney disease, and bipolar disease. [facility] at which time he was sent home with a LifeVest due to his low ejection fraction. He has a global hypokinesis on past echo 08/24/2017 with EF 25%-30% and is to follow up with the outpatient clinic. He is followed by Dr. Tai Serrano. He did have a cardiac catheterization in 2018, which show ed moderate underlying coronary artery disease with normal LV, but no intervention was necessary. La st echo dated 02/11/2018 showed left ventricular ejection fraction of 55%-60% as an outpatient. PHYSICAL EXAMINATION: VITAL SIGNS: A 5 feet, 9 inches, 27 BMI, 189 pounds, 97.8, 85, 143/77. HEENT: Unremarkable. LUNGS: Clear to auscultation. CARDIAC: Regular rate and rhythm without murmur or gallop. Palpable radial and ulnar pulses bilater ally. Ankle edema present. Antecubital IV on right removed. LABORATORY DATA: Hemoglobin 9.2, white count 5. Sodium 140, potassium 4.7, BUN 53, creatinine 5.5. GFR 11. ASSESSMENT AND PLAN: End-stage renal disease. We will plan placement of hemodialysis catheter. Ris ks and benefits have been discussed, he consents. We will plan placement of a right or left arm fist greta pending vein mapping.
--- NOTE | 2018-06-15 11:30 | ULT ---
ULTRASOUND VESSEL MAPPING FOR DIALYSIS ACCESS: History: 38-year-old male with history of ESRD for fistula placement evaluation. VEIN MAPPING OF UPPER EXTREMITIES FOR DIALYSIS ACCESS: RIGHT UPPER EXTREMITY BRACHIAL ARTERY: 4.1 mm RADIAL ARTERY: 2.6 mm ULNAR ARTERY: 1.5 mm CEPHALIC VEIN Proximal Arm: 3.2 mm Mid Arm: 2.8 mm Distal Arm: 4.0 mm Antecubital Fossa: 5.2 mm Proximal Forearm: 2.2 mm Mid Forearm: 2.2 mm Distal Forearm: 1.9 mm BASILIC VEIN Proximal Arm: 4.3 mm Mid Arm: 4.3 mm Distal Arm: 4.6 mm Antecubital Fossa: 3.8 mm Proximal Forearm: 3.1 mm Mid Forearm: 1.3 mm Distal Forearm: 0.9 mm LEFT UPPER EXTREMITY BRACHIAL ARTERY: 4.2 mm RADIAL ARTERY: 2.5 mm ULNAR ARTERY: 1.7 mm CEPHALIC VEIN Proximal Arm: 2.8 mm Mid Arm: 3.1 mm Distal Arm: 2.2 mm Antecubital Fossa: 2.1 mm Proximal Forearm: 1.5 mm Mid Forearm: 1.2 mm Distal Forearm: 2.0 mm BASILIC VEIN Proximal Arm: 3.6 mm Mid Arm: 3.8 mm Distal Arm: 2.9 mm Antecubital Fossa: 2.4 mm Proximal Forearm: 1.4 mm Mid Forearm: 0.9 mm Distal Forearm: 1.2 mm POS: [facility]
--- NOTE | 2018-06-15 11:34 | ULT ---
RENAL DOPPLER EVALUATION: RENAL ULTRASOUND: CLINICAL HISTORY: Renal artery stenosis. TECHNIQUE: Mendes-scale Doppler color-flow and spectral analysis was performed. FINDINGS: The peak systolic velocity of the right renal artery is 85 cm per second and of the left renal artery is 46 cm per second. The aorta is measured at 77 cm per second. The right renal artery to aorta ra adeel is 1.1 and the left renal artery to aorta ratio is 0.6. Resistive indices at the level of the ar marcy vasculature measure 0.6 on the right and 0.5 on the left. Right renal length measures between 12 and 13 cm, and left renal length measures between 11 and 12 cm . There is no overt hydronephrosis. IMPRESSION: There is no sonographic evidence to indicate renal artery stenosis. POS: [facility]
--- NOTE | 2018-06-15 13:20 | PDOC.CTH ---
Cardiology Progress Note - Subjective The pt seen and examined. No overnight events. No cardiac complaints. - Objective Vital Signs Temp Pulse Resp BP BP Pulse Ox 06/15/18 11:33 97.9 F 88 18 169/89 H 99 06/15/18 07:29 97.8 F 85 16 143/77 H 98 06/15/18 07:18 94 L 06/15/18 06:26 84 16 141/75 H 06/15/18 04:00 98.0 F 83 18 117/64 93 L Admit Weight 191 lb 8 oz Weight 189 lb 9.6 oz 06/14/18 06/15/18 06/16/18 06:59 06:59 06:59 Intake Total 770 Output Total 550 Balance 220 - Physical Examination General/Neuro: alert & oriented x3 Neck: no JVD present Lungs: other: (diminished at bases in RLL) Heart: RRR Abdomen: soft Extremities: other: (4+ pitting BLE edema) - Telemetry Telemetry Rhythm: SR 80s - Labs Result Diagrams: 06/15/18 05:01 06/15/18 05:01 Troponin/CKMB Troponin I 0.044 ng/mL (< 0.028) H 06/14/18 17:17 - Assessment/Plan 1. Acute on chronic systolic HF - stable with Lasix IV 80mg BID, bbloker; not on ELSY/ARB due to hx of CKD; 2. Non-ischemic CMY - holding Entresto due to hx of CKD; Echo result is pending at this time 3. Acute on CKD - Plan for HD cath placement today 4. CAD with s/p LHC in 08/2017 with 50% stenosis in mid LAD, 60% in D2, 50% in prox Lt Cx, 30% in distal RCA, and 30% in mid LAD - stable; on BBlocker, ASA 81mg qd, and statin; not on ELSY/ARB due to hx of CKD. 5. HTN - stable with current medication 6. Hyperlipidemia - On Statin 7. DM type 2 - managed by PCP MAR reviewed Review of Systems - Review of Systems Constitutional: reports: no symptoms reported EENTM: reports: no symptoms reported Respiratory: reports: no symptoms reported Cardiac (ROS): reports: no symptoms reported ABD/GI: reports: no symptoms reported : reports: no symptoms reported Musculoskeletal: reports: no symptoms reported
[2018-06-15] MEDS ORDERED: Tuberculin PPD 0.1 ML VIAL I-DERMAL SCH (15:00)
[2018-06-15] MEDS ORDERED: Heparin 10,000 UNITS/ 10 ML VIAL ONE (16:15)
[2018-06-15] MEDS ORDERED: Lidocaine 1% PF 5 ML VIAL ONE (16:15)
[2018-06-15] MEDS ORDERED: PROPOFOL 200 MG/20 ML VIAL ONE (16:15)
[2018-06-15] MEDS ORDERED: Fentanyl 100 MCG/2 ML VIAL ONE (17:56)
[2018-06-15] MEDS ORDERED: Heparin 5,000 UNITS/ML VIAL ONE (18:08)
[2018-06-15] MEDS ORDERED: Bupivacaine HCl 0.5%/Epinephrine 1:200,000/PF 30 ml Vial ONE (18:08)
[2018-06-15] MEDS ORDERED: Protamine Sulfate 50 MG/5 ML VIAL ONE (18:08)
[2018-06-15] MEDS ORDERED: Sodium Chloride 0.9% 30 ML ONE (18:08)
[2018-06-15] MEDS ORDERED: Ioversol 68 % 50 ML VIAL ONE (18:09)
[2018-06-15] MEDS ORDERED: Lidocaine 2% PF 5 ML VIAL ONE (18:09)
[2018-06-15] MEDS ORDERED: Heparin 10,000 UNITS/1 ML VIAL ONE (18:12)
[2018-06-15] MEDS ORDERED: CEFAZOLIN 2 GM/50 ML BAG ONE (18:29)
[2018-06-15] MEDS ORDERED: traMADol HCl 50 MG TAB PO PRN ×2 (20:39)
[2018-06-15] MEDS ORDERED: Acetaminophen 500 MG TAB PO PRN (20:39)
[2018-06-15] MEDS ORDERED: Ondansetron PF 4 MG/2 ML Vial ONE (21:35)
--- NOTE | 2018-06-15 21:45 | RAD ---
AP VIEW CHEST: 06/15/18 HISTORY: Central line placement. AP view chest is obtained on 06/15/18. Comparison made to previous exam from 06/14/18. AP view chest demonstrates cardiomegaly. Bilateral pleural effusions seen. There has been placement of a right jugular dialysis catheter. Distal tip overlying the right atrium. No evidence of right sided hemo or pneumothorax seen. Pulmonary vascular congestion seen. IMPRESSION: Cardiomegaly and bilateral pleural effusions. POS: [facility]
[2018-06-15] MEDS ORDERED: Sodium Chloride 0.9% 10 ML ONE (22:15)
[2018-06-15] MEDS: Atorvastatin Calcium 40 MG TAB PO SCH (22:19)
[2018-06-16] MEDS ORDERED: Sodium Chloride 0.9% 500 ML IV SCH (00:45)
[2018-06-16] MEDS ORDERED: Sodium Chloride 0.9% 10 ML ONE ×2 (00:50→04:38)
[2018-06-16] MEDS ORDERED: Sodium Chloride 0.9% 500 ML IVPB SCH (04:00)
[2018-06-16] MEDS ORDERED: Albumin 25% 25 GM/100 ML BOT IVPB SCH (04:01)
--- NOTE | 2018-06-16 04:12 | OP ---
DATE OF PROCEDURE: 06/15/2018 PREOPERATIVE DIAGNOSIS: End-stage renal disease in need of dialysis access. POSTOPERATIVE DIAGNOSIS: End-stage renal disease in need of dialysis access. PROCEDURES: Right IJ cuffed tunnel hemodialysis catheter, ultrasound fluoroscopy used. Placement of right Fabio fistula. Note that, the outflow seemed to bifurcate the more lateral branch seemed to accommodate a 3.5 mm coronary artery dilator and more medial branch would not accommodate anything la rger than a 3 mm coronary artery dilator, thus they were both left in place. They seemed to join mor e proximally and performed the same vein. PROCEDURE IN DETAIL: The patient was taken to the operating room, where under general anesthesia, ne ck and chest, right upper extremity was prepped with ChloraPrep, draped in routine fashion. Local an esthetic infiltrated into the skin and subcutaneous tissue about all operative sites. Using ultrasou nd, the right internal jugular vein was cannulated with a trocar catheter. J-wire threaded. Trocar catheter removed. Skin incised and enlarged sharply. Stab incision made around the right chest. Pr ecurved angiodynamics, cuffed tunnel hemodialysis catheter between the two incisions, placing the marco a to cuff beneath the skin exit site and catheter secured with 2 interrupted sutures of 3-0 nylon. Sm aller and medium sized dilators placed over the J-wire into the internal jugular vein removed. Dilat or and pull-away sheath placed over the J-wire in superior vena cava and dilator and J-wire removed. Catheter placed with pull-away sheath. Pull-away sheath removed. Fluoroscopically, the catheter no israel to be in good position as the platysma approximated with 4-0 Monocryl, skin with subdermal 4-0 Mo nocryl and DermaGlue, sterile dressing applied. Each port aspirated blood and flushed with injectabl e saline and heparinized saline solution, 1000 units of heparin per mL indicated volume of the port. Incision was made longitudinally in the right wrist between the cephalic vein and radial artery, cotter ied down through skin and subcutaneous tissue and cephalic vein and radial artery dissected free. Ce phalic vein on the hand side ligated with 3-0 silk suture divided and spatulated and interrogated wit h coronary artery dilators, passing coronary artery dilators from a 2 mm to a 3 mm coronary artery di lator without obstruction. There beyond this, more medial branch traveled towards the volar forearm, but the 3.5 mm coronary artery dilator would not pass. This would pass in the more lateral branch, I seen the joint again. Both were left intact. Radial artery dissected free, clamped proximally and distally. After adequate circulation time, 6000 units of heparin intravenously administered. ____ _ radial artery anastomosis cm made with continuous suture of 6-0 Prolene, completing the anast omosis, releasing the vascular clamps, and noting good hemostasis. Subcutaneous tissues approximated with 3-0 Monocryl, skin with subdermal 4-0 Monocryl and DermaGlue applied. The patient tolerated th e procedure well.
[2018-06-16 04:37] LABS: Hemoglobin 9.6 g/dL (14.0-18.0); Mean Corpuscular HGB CONC 31.7 g/dL (32.0-36.0); Mean Corpuscular Hemoglobin 29.3 pg (27.0-31.0); Mean Corpuscular Volume 92.5 fL (78.0-98.0); Mean Platelet Volume 10.7 fL (7.4-10.4); Platelet Count 129 thou/uL (130-400); RBC Distribution Width 11.6 % (11.5-14.5); Red Blood Cell (RBC) Count 3.29 mill/uL (4.70-6.10); White Blood Cell (WBC) Count 5.2 thou/uL (4.8-10.8)
[2018-06-16 05:09] LABS: Band 2 % (5-11); Eosinophils 4 % (0-10); Lymphocytes 9 % (21-51); MDiff Complete? YES; Monocytes 7 % (0-10); Neutrophil 78 % (42-75)
[2018-06-16] MEDS: Nitroglycerin 2% Ointment 1 INCH/1 GM Packet TOP SCH ×3 (06:10→21:07)
[2018-06-16] MEDS: Famotidine 20 MG TAB PO SCH (09:26)
[2018-06-16] MEDS: Insulin Glargine 40 UNITS in Pre-Filled Syringe SC SCH (09:26)
[2018-06-16] MEDS: Enoxaparin Sodium 30 MG/0.3 ML SYRINGE SC SCH (09:26)
[2018-06-16] MEDS: Carvedilol 6.25 MG TAB PO SCH ×2 (09:31→17:47)
[2018-06-16] MEDS: Amlodipine 10 MG TAB PO SCH (09:35)
[2018-06-16] MEDS: hydrALAZINE 25 MG TAB PO SCH ×2 (09:35→21:05)
[2018-06-16] MEDS: cloNIDine 0.2 MG TAB PO SCH ×3 (09:35→21:14)
[2018-06-16] MEDS ORDERED: Heparin 10,000 UNITS/ 10 ML VIAL ONE (10:00)
--- NOTE | 2018-06-16 13:22 | PDOC.PN ---
- Subjective Encounter Start Date: 06/16/18 Encounter Start Time: 13:19 Subjective: doing well, S/P Left wrist AVF for future dialysis - Objective Resuscitation Status: Resuscitation Status FULL:Full Resuscitation MAR Reviewed: Yes Vital Signs & Weight: Vital Signs (12 hours) Temp Pulse Resp BP BP BP BP 06/16/18 09:35 79 160/103 H 06/16/18 09:31 115/80 06/16/18 08:00 97.7 F 79 16 115/60 06/16/18 05:35 74 16 112/58 L 06/16/18 04:44 77 16 103/56 L 06/16/18 04:41 76 16 94/55 L 06/16/18 03:45 68 16 92/50 L 06/16/18 03:25 86/56 L 06/16/18 03:19 97.6 F 72 16 85/52 L 06/16/18 02:08 70 16 94/53 L 06/16/18 01:40 70 16 116/60 06/16/18 01:29 78 16 128/62 Pulse Ox 06/16/18 09:35 06/16/18 09:31 06/16/18 08:00 98 06/16/18 05:35 06/16/18 04:44 06/16/18 04:41 06/16/18 03:45 06/16/18 03:25 06/16/18 03:19 96 06/16/18 02:08 06/16/18 01:40 06/16/18 01:29 Weight Admit Weight 191 lb 8 oz Weight 189 lb 9.6 oz I&O: 06/15/18 06/16/18 06/17/18 06:59 06:59 06:59 Intake Total 770 1195 Output Total 550 1225 Balance 220 -30 Result Diagrams: 06/16/18 04:28 06/15/18 05:01 Additional Labs: Accuchecks 06/16/18 06/16/18 06/15/18 10:33 05:46 22:27 POC Glucose 183 H 149 H 160 H Phys Exam - Physical Examination HEENT: PERRLA, moist MMs, sclera anicteric, TM's clear, oral pharynx no lesions , 2+ tonsils Neck: no nodes, no JVD, supple, full ROM Respiratory: no wheezing, no rales, no rhonchi Cardiovascular: RRR, no significant murmur, no rub Gastrointestinal: soft, non-tender, no distention, positive bowel sounds Musculoskeletal: edema present significant peripheral edema Neurological: non-focal, normal sensation, moves all 4 limbs Dx/Plan (1) Acute on chronic renal failure Code(s): N17.9 - ACUTE KIDNEY FAILURE, UNSPECIFIED; N18.9 - CHRONIC KIDNEY DISEASE, UNSPECIFIED Status: Acute Qualifiers: Chronic kidney disease stage: stage 5, not on chronic dialysis Comment: Plans to initiate dialysis, now on Lasix. Now with right IJ tunneled dialysis catheter. Right wrist AVF 05/15. Awaiting OP dialysis chair placement. Stopped Entersto. Renal US did not show any stenosis (2) Diabetes Code(s): E11.9 - TYPE 2 DIABETES MELLITUS WITHOUT COMPLICATIONS Status: Chronic Qualifiers: Diabetes mellitus intermediate school teacher insulin use: without intermediate school teacher use Diabetes mellitus complication status: with kidney complications Diabetes mellitus complication detail: with chronic kidney disease Chronic kidney disease stage : stage 5, not on chronic dialysis Comment: SS insulin (3) Acute on chronic systolic (congestive) heart failure Code(s): I50.23 - ACUTE ON CHRONIC SYSTOLIC (CONGESTIVE) HEART FAILURE Status : Acute Comment: Low EF 25-30%, STOPPED ENtresto as renal function has declined rapidly (4) CAD (coronary artery disease) Code(s): I25.10 - ATHSCL HEART DISEASE OF [place] CORONARY ARTERY W/O ANG PCTRS Status: Acute Qualifiers: Coronary Disease-Associated Artery/Lesion type: [place] artery [place] vs. transplanted heart: [place] heart Associated angina: without angina Qualified Code(s): I25.10 - Atherosclerotic heart disease of [place] coronary artery without angina pectoris Comment: continue aspirin and statin (5) Demand ischemia of myocardium Code(s): I24.8 - OTHER FORMS OF ACUTE ISCHEMIC HEART DISEASE Status: Acute (6) HTN (hypertension) Code(s): I10 - ESSENTIAL (PRIMARY) HYPERTENSION Status: Chronic Qualifiers: Hypertension type: essential hypertension Qualified Code(s): I10 - Essential (primary) hypertension Comment: Continue Amlodipine, Cravedilol, Clonidine (7) Cardiomyopathy Code(s): I42.9 - CARDIOMYOPATHY, UNSPECIFIED Status: Chronic Qualifiers: Cardiomyopathy type: ischemic Qualified Code(s): I25.5 - Ischemic cardiomyopathy - Plan cont current plan of care, DVT proph w/lovenox Awaiting dialysis placement * .
[2018-06-16 14:37] LABS: HBSAB Concentration 1.63 mIU/mL; HBSAg Index 0.27 S/CO (0-0.99); Hep B Core Total Ab Non-Reactive (NonReactive); Hep B Core Total Index 0.05 S/CO (0-0.79); Hep B Surf AB Non-Reactive (NonReactive); Hep B Surf Ag Non-Reactive S/CO (NonReactive)
--- NOTE | 2018-06-16 18:58 | PDOC.CTH ---
Cardiology Progress Note - Objective Vital Signs Temp Pulse Pulse Pulse Resp BP BP 06/16/18 17:47 151/88 H 06/16/18 16:00 98.3 F 88 20 06/16/18 15:20 160/103 H 06/16/18 12:50 98 F 82 18 06/16/18 11:00 83 88 108/56 L 06/16/18 09:35 79 160/103 H 06/16/18 09:31 115/80 06/16/18 08:00 97.7 F 79 16 BP BP Pulse Ox 06/16/18 17:47 06/16/18 16:00 151/88 H 99 06/16/18 15:20 06/16/18 12:50 131/69 06/16/18 11:00 112/56 L 06/16/18 09:35 06/16/18 09:31 06/16/18 08:00 115/60 98 Admit Weight 191 lb 8 oz Weight 189 lb 9.6 oz 06/15/18 06/16/18 06/17/18 06:59 06:59 06:59 Intake Total 770 1195 840 Output Total 550 1225 350 Balance 220 -30 490 - Physical Examination General/Neuro: alert & oriented x3 Neck: no JVD present Lungs: CTA Heart: RRR Abdomen: NT/ND - Labs Result Diagrams: 06/16/18 04:28 06/15/18 05:01 Troponin/CKMB Troponin I 0.044 ng/mL (< 0.028) H 06/14/18 17:17 - Assessment/Plan 1. Acute on chronic systolic HF - stable with Lasix IV 80mg BID, bbloker; not on ELSY/ARB due to hx of CKD; 2. Non-ischemic CMY - holding Entresto due to hx of CKD; Echo result is pending at this time 3. Acute on CKD - HD performed today 4. CAD with s/p LHC in 08/2017 with 50% stenosis in mid LAD, 60% in D2, 50% in prox Lt Cx, 30% in distal RCA, and 30% in mid LAD - stable; on BBlocker, ASA 81mg qd, and statin; not on ELSY/ARB due to hx of CKD. 5. HTN - stable with current medication 6. Hyperlipidemia - On Statin 7. DM type 2 - managed by PCP CLARK schroeder
--- NOTE | 2018-06-16 19:55 | PRG ---
DATE OF SERVICE: 06/16/2018 The patient did well today. He has good hand function, he has good thrill and bruit in his right Cim emilie fistula. His wound looks good. At this point, he should exercise his arm. He should follow up with me in 3-4 weeks. I will see him as needed this hospitalization.
[2018-06-16] MEDS: Atorvastatin Calcium 40 MG TAB PO SCH (20:57)
[2018-06-17] MEDS: Nitroglycerin 2% Ointment 1 INCH/1 GM Packet TOP SCH ×3 (07:09→20:40)
[2018-06-17] MEDS: cloNIDine 0.2 MG TAB PO SCH ×3 (09:00→20:40)
[2018-06-17] MEDS ORDERED: READ PPD TEST SITE PO SCH (09:00)
[2018-06-17] MEDS ORDERED: Heparin 10,000 UNITS/ 10 ML VIAL ONE (10:00)
[2018-06-17] MEDS: hydrALAZINE 25 MG TAB PO SCH ×2 (10:31→20:40)
[2018-06-17] MEDS: Carvedilol 6.25 MG TAB PO SCH ×2 (10:32→16:13)
[2018-06-17] MEDS: Amlodipine 10 MG TAB PO SCH (10:34)
[2018-06-17] MEDS: Famotidine 20 MG TAB PO SCH (10:34)
[2018-06-17] MEDS: Insulin Glargine 40 UNITS in Pre-Filled Syringe SC SCH (10:36)
--- NOTE | 2018-06-17 11:20 | PDOC.CTH ---
<Angeles Person - Last Filed: 06/17/18 11:16> Cardiology Progress Note - Subjective The pt seen and examined. No overnight events. No cardiac complaints. He has been walking around the floor without any cardiac complaints. Wearing TEDs. - Objective Vital Signs Temp Pulse Resp BP BP Pulse Ox 06/17/18 10:34 81 06/17/18 10:32 161/90 H 06/17/18 10:31 81 06/17/18 09:00 151/88 H 06/17/18 07:35 98.7 F 81 20 135/75 98 06/17/18 03:10 98.7 F 79 18 130/71 96 06/16/18 23:51 85 114/59 L Admit Weight 191 lb 8 oz Weight 191 lb 06/16/18 06/17/18 06/18/18 06:59 06:59 06:59 Intake Total 1195 1090 Output Total 1225 775 Balance -30 315 - Physical Examination General/Neuro: alert & oriented x3 Neck: no JVD present Lungs: CTA (diminished at bases) Heart: RRR Abdomen: soft Extremities: other: (4+ pitting BLE edema) - Telemetry Telemetry Rhythm: SR 80s - Labs Result Diagrams: 06/16/18 04:28 06/15/18 05:01 Troponin/CKMB Troponin I 0.044 ng/mL (< 0.028) H 06/14/18 17:17 - Assessment/Plan 1. Acute on chronic systolic HF - stable with Lasix IV 80mg BID, bbloker; not on ELSY/ARB due to hx of CKD; 2. Non-ischemic CMY - holding Entresto due to hx of CKD; Echo was taken and the result is pending at this time 3. Acute on CKD - 2nd HD performed for 2 hours today 4. CAD with s/p LHC in 08/2017 with 50% stenosis in mid LAD, 60% in D2, 50% in prox Lt Cx, 30% in distal RCA, and 30% in mid LAD - stable; on BBlocker, ASA 81mg qd, and statin; not on ELSY/ARB due to hx of CKD. 5. HTN - stable with coreg, norvasc, and Clonidine. 6. Hyperlipidemia - On Statin 7. DM type 2 - managed by PCP MAR reviewed Review of Systems - Review of Systems Constitutional: reports: no symptoms reported EENTM: reports: no symptoms reported Respiratory: reports: no symptoms reported Cardiac (ROS): reports: no symptoms reported ABD/GI: reports: no symptoms reported : reports: no symptoms reported Musculoskeletal: reports: no symptoms reported <Chris Serrano - Last Filed: 06/17/18 17:15> Cardiology Progress Note - Objective Vital Signs Temp Pulse Pulse Pulse Resp BP BP 06/17/18 16:15 98.4 F 85 20 06/17/18 16:13 117/63 06/17/18 15:05 161/90 H 06/17/18 11:58 85 80 119/64 06/17/18 10:45 98.3 F 81 18 06/17/18 10:34 81 06/17/18 10:32 161/90 H 06/17/18 10:31 81 06/17/18 09:00 151/88 H 06/17/18 08:00 06/17/18 07:35 98.7 F 81 20 BP BP BP Pulse Ox Pulse Ox Pulse Ox 06/17/18 16:15 117/65 96 06/17/18 16:13 06/17/18 15:05 06/17/18 11:58 109/56 L 94 L 95 06/17/18 10:45 161/90 H 98 06/17/18 10:34 06/17/18 10:32 06/17/18 10:31 06/17/18 09:00 06/17/18 08:00 98 06/17/18 07:35 135/75 98 Admit Weight 191 lb 8 oz Weight 191 lb 06/16/18 06/17/18 06/18/18 06:59 06:59 06:59 Intake Total 1195 1090 Output Total 1225 775 Balance -30 315 - Labs Result Diagrams: 06/16/18 04:28 06/15/18 05:01 Troponin/CKMB Troponin I 0.044 ng/mL (< 0.028) H 06/14/18 17:17 - Assessment/Plan Pt. seen and eval. by me. I agree with the A/P by the LOCOMOTIVE BOILERMAKER. Echo indicates EF 50- 55%. Cardiac status is stable. Continue dialysis for acute on chronic renal failure.
[2018-06-17 13:14] VITALS: BMI 27.8
--- NOTE | 2018-06-17 14:35 | PDOC.PN ---
- Subjective Encounter Start Date: 06/17/18 Encounter Start Time: 11:00 Subjective: pt up in chair no complains - Objective Resuscitation Status: Resuscitation Status FULL:Full Resuscitation Vital Signs & Weight: Vital Signs (12 hours) Temp Pulse Resp BP BP Pulse Ox 06/17/18 10:45 98.3 F 81 18 161/90 H 98 06/17/18 10:34 81 06/17/18 10:32 161/90 H 06/17/18 10:31 81 06/17/18 09:00 151/88 H 06/17/18 08:00 98 06/17/18 07:35 98.7 F 81 20 135/75 98 06/17/18 03:10 98.7 F 79 18 130/71 96 Weight Admit Weight 191 lb 8 oz Weight 191 lb I&O: 06/16/18 06/17/18 06/18/18 06:59 06:59 06:59 Intake Total 1195 1090 Output Total 1225 775 Balance -30 315 Result Diagrams: 06/16/18 04:28 06/15/18 05:01 Additional Labs: Accuchecks 06/17/18 06/17/18 06/16/18 11:22 05:41 21:01 POC Glucose 88 137 H 193 H 06/16/18 17:20 POC Glucose 179 H Phys Exam - Physical Examination Neck: no nodes, no JVD, supple, full ROM Respiratory: no wheezing, no rales, no rhonchi, wheezing present, clear to auscultation bilateral Cardiovascular: RRR, no significant murmur, no rub, gallop, irregular Gastrointestinal: soft, non-tender, no distention, positive bowel sounds Dx/Plan (1) Acute on chronic renal failure Code(s): N17.9 - ACUTE KIDNEY FAILURE, UNSPECIFIED; N18.9 - CHRONIC KIDNEY DISEASE, UNSPECIFIED Status: Acute Qualifiers: Chronic kidney disease stage: stage 5, not on chronic dialysis Comment: Plans to initiate dialysis, now on Lasix. Now with right IJ tunneled dialysis catheter. Right wrist AVF 05/15. Awaiting OP dialysis chair placement. Stopped Entersto. Renal US did not show any stenosis (2) Acute on chronic systolic (congestive) heart failure Code(s): I50.23 - ACUTE ON CHRONIC SYSTOLIC (CONGESTIVE) HEART FAILURE Status : Acute Comment: Low EF 25-30%, STOPPED ENtresto as renal function has declined rapidly (3) CAD (coronary artery disease) Code(s): I25.10 - ATHSCL HEART DISEASE OF [place] CORONARY ARTERY W/O ANG PCTRS Status: Acute Qualifiers: Coronary Disease-Associated Artery/Lesion type: [place] artery [place] vs. transplanted heart: [place] heart Associated angina: without angina Qualified Code(s): I25.10 - Atherosclerotic heart disease of [place] coronary artery without angina pectoris Comment: continue aspirin and statin (4) Diabetes Code(s): E11.9 - TYPE 2 DIABETES MELLITUS WITHOUT COMPLICATIONS Status: Chronic Qualifiers: Diabetes mellitus exterminator helper insulin use: without prison use Diabetes mellitus complication status: with kidney complications Diabetes mellitus complication detail: with chronic kidney disease Chronic kidney disease stage : stage 5, not on chronic dialysis Comment: SS insulin - Plan pt getting dialysis -: will add phosphate binders. stop lovonox and pt on scd -: ef 50-55% pt on lasix -: blood pressure still high, will ask nephro when ok to start on ELSY -: will stop norvasc and add procardia due to lower ext swelling * . Review of Systems - Review of Systems Respiratory: negative: Cough, Dry, Shortness of Breath, Hemoptysis, SOB with Excertion, Pleuritic Pain, Sputum, Wheezing Cardiovascular: negative: chest pain, palpitations, orthopnea, paroxysmal nocturnal dyspnea, edema, light headedness, other Gastrointestinal: negative: Nausea, Vomiting, Abdominal Pain, Diarrhea, Constipation, Melena, Hematochezia, Other - Medications/Allergies Allergies/Adverse Reactions: Allergies Allergy/AdvReac Type Severity Reaction Status Date / Time No Known Allergies Allergy Verified 06/14/18 16:06 Medications: Current Medications Acetaminophen (Tylenol) 1,000 mg PO Q6H PRN PRN Reason: Moderate to Severe Pain (6-10) Last Admin: 06/15/18 22:20 Dose: 1,000 mg Amlodipine Besylate (Norvasc) 10 mg PO DAILY [facility] Last Admin: 06/17/18 10:34 Dose: 10 mg Aspirin (Aspirin Chewable) 81 mg PO DAILY [facility] Last Admin: 06/17/18 10:34 Dose: 81 mg Atorvastatin Calcium (Lipitor) 40 mg PO HS [facility] Last Admin: 06/16/18 20:57 Dose: 40 mg Carvedilol (Coreg) 12.5 mg PO BID-[facility] Last Admin: 06/17/18 10:32 Dose: 12.5 mg Clonidine (Catapres) 0.2 mg PO TID [facility] Last Admin: 06/17/18 09:00 Dose: Not Given Dextrose/Water (Dextrose 50%) 25 gm SLOW IVP PRN PRN PRN Reason: Hypoglycemia Famotidine (Pepcid) 20 mg PO DAILY [facility] Last Admin: 06/17/18 10:34 Dose: 20 mg Furosemide (Lasix) 80 mg SLOW IVP 0600,1400 [facility] Glucagon (Glucagon) 1 mg IM PRN PRN PRN Reason: Hypoglycemia Guaifenesin/Dextromethorphan (Robitussin Dm) 15 ml PO Q4H PRN PRN Reason: Cough Hydralazine HCl (Apresoline) 75 mg PO BID [facility] Last Admin: 06/17/18 10:31 Dose: 75 mg Dextrose/Water (D5w) 1,000 mls @ 0 mls/hr IV .Q0M PRN PRN Reason: Hypoglycemia Insulin Glargine 40 units/ (Miscellaneous Medication) 0.4 mls @ 0 mls/hr SC QAM [facility] Last Admin: 06/17/18 10:36 Dose: 0.4 mls Insulin Human Lispro (Humalog) 0 units SC .MODERATE SLIDING SC PRN PRN Reason: Moderate Correctional Scale Insulin Human Lispro (Humalog) 0 units SC .BEDTIME SLIDING SC PRN PRN Reason: Bedtime Correctional Scale Nitroglycerin (Nitro-Bid 2% Ointment) 0.5 inch TOP Q8HR [facility] Last Admin: 06/17/18 07:09 Dose: Not Given Ondansetron HCl (Zofran) 4 mg IVP Q6H PRN PRN Reason: Nausea/Vomiting Sevelamer Carbonate (Renvela) 400 mg PO BID [facility] Sodium Chloride (Flush - Normal Saline) 10 ml IVF PRN PRN PRN Reason: Saline Flush Last Admin: 06/16/18 21:15 Dose: 10 ml Tramadol HCl (Ultram) 50 mg PO Q12H PRN PRN Reason: Pain 1-5 Tramadol HCl (Ultram) 100 mg PO Q12H PRN PRN Reason: Pain 6-10 2ND AGENT
[2018-06-17] MEDS: Furosemide 100 MG/10 ML VIAL SLOW IVP SCH (16:14)
[2018-06-17] MEDS: Sevelamer Carbonate 800 MG TAB PO SCH (20:39)
[2018-06-17] MEDS: Atorvastatin Calcium 40 MG TAB PO SCH (20:39)
[2018-06-17] MEDS: Enoxaparin Sodium 30 MG/0.3 ML SYRINGE SC SCH (22:50)
[2018-06-18] MEDS: Furosemide 100 MG/10 ML VIAL SLOW IVP SCH ×2 (05:36→14:29)
[2018-06-18] MEDS: Nitroglycerin 2% Ointment 1 INCH/1 GM Packet TOP SCH ×3 (05:39→22:03)
[2018-06-18] MEDS: cloNIDine 0.2 MG TAB PO SCH ×3 (07:49→20:44)
[2018-06-18] MEDS: Sevelamer Carbonate 800 MG TAB PO SCH ×2 (10:10→20:42)
[2018-06-18] MEDS: Insulin Glargine 40 UNITS in Pre-Filled Syringe SC SCH (10:10)
[2018-06-18] MEDS: hydrALAZINE 25 MG TAB PO SCH ×3 (10:11→20:44)
[2018-06-18] MEDS: NIFEdipine XL 60 MG TAB PO SCH (10:48)
[2018-06-18] MEDS: Carvedilol 6.25 MG TAB PO SCH ×2 (10:48→16:52)
[2018-06-18] MEDS: Famotidine 20 MG TAB PO SCH (10:49)
[2018-06-18] MEDS ORDERED: Heparin 1,000 UNITS/ML VIAL ONE (11:11)
--- NOTE | 2018-06-18 11:20 | PDOC.CTH ---
<Angeles Person - Last Filed: 06/18/18 11:18> Cardiology Progress Note - Subjective The pt seen and examined. No overnight events. No cardiac complaints. He has been walking around the floor without any cardiac complaints. Wearing TEDs. - Objective Vital Signs Temp Pulse Resp BP BP Pulse Ox 06/18/18 10:48 89 175/94 H 06/18/18 10:43 97.7 F 89 16 175/94 H 98 06/18/18 02:57 98.5 F 85 17 125/67 97 06/17/18 23:58 98.7 F 85 14 122/61 95 Admit Weight 191 lb 8 oz Weight 190 lb 5 oz 06/17/18 06/18/18 06/19/18 06:59 06:59 06:59 Intake Total 1090 990 Output Total 775 1600 Balance 315 -610 - Physical Examination General/Neuro: alert & oriented x3 Neck: no JVD present Lungs: CTA Heart: RRR Abdomen: soft Extremities: other: (3+ pitting BLE edema; BLE TEDs) - Telemetry Telemetry Rhythm: SR 80s - Labs Result Diagrams: 06/16/18 04:28 06/15/18 05:01 Troponin/CKMB Troponin I 0.044 ng/mL (< 0.028) H 06/14/18 17:17 - Assessment/Plan 1. Acute on chronic systolic HF - stable with Lasix IV 80mg BID, bbloker; not on ELSY/ARB due to hx of CKD; 2. Non-ischemic CMY - holding Entresto due to hx of CKD; Echo on 06/17/18 showed EF 50-55%. 3. Acute on CKD - 3rd HD today 4. CAD with s/p LHC in 08/2017 with 50% stenosis in mid LAD, 60% in D2, 50% in prox Lt Cx, 30% in distal RCA, and 30% in mid LAD - stable; on BBlocker, ASA 81mg qd, and statin; not on ELSY/ARB due to hx of CKD. 5. HTN - stable with coreg, norvasc, and Clonidine. 6. Hyperlipidemia - On Statin 7. DM type 2 - managed by PCP MAR reviewed Review of Systems - Review of Systems Constitutional: reports: no symptoms reported EENTM: reports: no symptoms reported Respiratory: reports: no symptoms reported Cardiac (ROS): reports: no symptoms reported ABD/GI: reports: no symptoms reported : reports: no symptoms reported Musculoskeletal: reports: no symptoms reported <Chris Serrano - Last Filed: 06/18/18 13:14> Cardiology Progress Note - Objective Vital Signs Temp Pulse Resp BP BP Pulse Ox 06/18/18 11:00 98 06/18/18 10:48 89 175/94 H 06/18/18 10:43 97.7 F 89 16 175/94 H 98 06/18/18 02:57 98.5 F 85 17 125/67 97 Admit Weight 191 lb 8 oz Weight 190 lb 5 oz 06/17/18 06/18/18 06/19/18 06:59 06:59 06:59 Intake Total 1090 990 Output Total 775 1600 Balance 315 -610 - Labs Result Diagrams: 06/16/18 04:28 06/15/18 05:01 Troponin/CKMB Troponin I 0.044 ng/mL (< 0.028) H 06/14/18 17:17 - Assessment/Plan Pt. seen and eval. by me. I agree with the A/P by the SIGNAL REPAIRER. He is tolerating dialysis well. BP is still elevated. Mild -mod. edema. Chest clear. Overall cardiac status is stable.
--- NOTE | 2018-06-18 14:45 | PDOC.PN ---
- Subjective Encounter Start Date: 06/18/18 Encounter Start Time: 11:15 Subjective: pt up in chair no complains - Objective Resuscitation Status: Resuscitation Status FULL:Full Resuscitation Vital Signs & Weight: Vital Signs (12 hours) Temp Pulse Resp BP BP BP Pulse Ox 06/18/18 14:29 113/61 06/18/18 14:27 87 113/61 06/18/18 11:00 98 06/18/18 10:48 89 175/94 H 06/18/18 10:43 97.7 F 89 16 175/94 H 98 06/18/18 02:57 98.5 F 85 17 125/67 97 Weight Admit Weight 191 lb 8 oz Weight 190 lb 5 oz I&O: 06/17/18 06/18/18 06/19/18 06:59 06:59 06:59 Intake Total 1090 990 Output Total 775 1600 Balance 315 -610 Result Diagrams: 06/16/18 04:28 06/15/18 05:01 Additional Labs: Accuchecks 06/18/18 06/18/18 06/18/18 10:54 07:30 05:31 POC Glucose 77 88 74 06/17/18 06/17/18 20:45 16:33 POC Glucose 84 73 Phys Exam - Physical Examination Neck: no nodes, no JVD, supple, full ROM Respiratory: no wheezing, no rales, no rhonchi, wheezing present, clear to auscultation bilateral Cardiovascular: RRR, no significant murmur, no rub, gallop, irregular Gastrointestinal: soft, non-tender, no distention, positive bowel sounds Musculoskeletal: edema present lower ext Dx/Plan (1) Acute on chronic renal failure Code(s): N17.9 - ACUTE KIDNEY FAILURE, UNSPECIFIED; N18.9 - CHRONIC KIDNEY DISEASE, UNSPECIFIED Status: Acute Qualifiers: Chronic kidney disease stage: stage 5, not on chronic dialysis Comment: Plans to initiate dialysis, now on Lasix. Now with right IJ tunneled dialysis catheter. Right wrist AVF 05/15. Awaiting OP dialysis chair placement. Stopped Entersto. Renal US did not show any stenosis (2) Acute on chronic systolic (congestive) heart failure Code(s): I50.23 - ACUTE ON CHRONIC SYSTOLIC (CONGESTIVE) HEART FAILURE Status : Acute Comment: Low EF 25-30%, STOPPED ENtresto as renal function has declined rapidly (3) CAD (coronary artery disease) Code(s): I25.10 - ATHSCL HEART DISEASE OF [place] CORONARY ARTERY W/O ANG PCTRS Status: Acute Qualifiers: Coronary Disease-Associated Artery/Lesion type: [place] artery [place] vs. transplanted heart: [place] heart Associated angina: without angina Qualified Code(s): I25.10 - Atherosclerotic heart disease of [place] coronary artery without angina pectoris Comment: continue aspirin and statin (4) Diabetes Code(s): E11.9 - TYPE 2 DIABETES MELLITUS WITHOUT COMPLICATIONS Status: Chronic Qualifiers: Diabetes mellitus moth exterminator insulin use: without moth exterminator use Diabetes mellitus complication status: with kidney complications Diabetes mellitus complication detail: with chronic kidney disease Chronic kidney disease stage : stage 5, not on chronic dialysis Comment: SS insulin - Plan pt tolerating dialysis well -: on asa/bb/statin not on shayy due to recent imelda and on dialysis -: will ask nephro is lasix is still helping pt? * . Review of Systems - Review of Systems Respiratory: negative: Cough, Dry, Shortness of Breath, Hemoptysis, SOB with Excertion, Pleuritic Pain, Sputum, Wheezing Cardiovascular: negative: chest pain, palpitations, orthopnea, paroxysmal nocturnal dyspnea, edema, light headedness, other Gastrointestinal: negative: Nausea, Vomiting, Abdominal Pain, Diarrhea, Constipation, Melena, Hematochezia, Other Genitourinary: negative: Dysuria, Frequency, Incontinence, Hematuria, Retention , Other - Medications/Allergies Allergies/Adverse Reactions: Allergies Allergy/AdvReac Type Severity Reaction Status Date / Time No Known Allergies Allergy Verified 06/14/18 16:06 Medications: Current Medications Acetaminophen (Tylenol) 1,000 mg PO Q6H PRN PRN Reason: Moderate to Severe Pain (6-10) Last Admin: 06/15/18 22:20 Dose: 1,000 mg Aspirin (Aspirin Chewable) 81 mg PO DAILY [facility] Last Admin: 06/18/18 10:48 Dose: 81 mg Atorvastatin Calcium (Lipitor) 40 mg PO HS [facility] Last Admin: 06/17/18 20:39 Dose: 40 mg Carvedilol (Coreg) 12.5 mg PO BID-WM [facility] Last Admin: 06/18/18 10:48 Dose: 12.5 mg Clonidine (Catapres) 0.2 mg PO TID [facility] Last Admin: 06/18/18 14:29 Dose: 0.2 mg Dextrose/Water (Dextrose 50%) 25 gm SLOW IVP PRN PRN PRN Reason: Hypoglycemia Famotidine (Pepcid) 20 mg PO DAILY [facility] Last Admin: 06/18/18 10:49 Dose: 20 mg Furosemide (Lasix) 80 mg SLOW IVP 0600,1400 [facility] Last Admin: 06/18/18 14:29 Dose: 80 mg Glucagon (Glucagon) 1 mg IM PRN PRN PRN Reason: Hypoglycemia Guaifenesin/Dextromethorphan (Robitussin Dm) 15 ml PO Q4H PRN PRN Reason: Cough Hydralazine HCl (Apresoline) 75 mg PO BID [facility] Last Admin: 06/18/18 10:48 Dose: 75 mg Dextrose/Water (D5w) 1,000 mls @ 0 mls/hr IV .Q0M PRN PRN Reason: Hypoglycemia Insulin Glargine 40 units/ (Miscellaneous Medication) 0.4 mls @ 0 mls/hr SC QAM [facility] Last Admin: 06/18/18 10:10 Dose: Not Given Insulin Human Lispro (Humalog) 0 units SC .MODERATE SLIDING SC PRN PRN Reason: Moderate Correctional Scale Insulin Human Lispro (Humalog) 0 units SC .BEDTIME SLIDING SC PRN PRN Reason: Bedtime Correctional Scale Nifedipine (Procardia Xl) 60 mg PO DAILY [facility] Last Admin: 06/18/18 10:48 Dose: 60 mg Nitroglycerin (Nitro-Bid 2% Ointment) 0.5 inch TOP Q8HR [facility] Last Admin: 06/18/18 14:29 Dose: Not Given Ondansetron HCl (Zofran) 4 mg IVP Q6H PRN PRN Reason: Nausea/Vomiting Sevelamer Carbonate (Renvela) 400 mg PO BID [facility] Last Admin: 06/18/18 10:10 Dose: Not Given Sodium Chloride (Flush - Normal Saline) 10 ml IVF PRN PRN PRN Reason: Saline Flush Last Admin: 06/16/18 21:15 Dose: 10 ml Tramadol HCl (Ultram) 50 mg PO Q12H PRN PRN Reason: Pain 1-5 Tramadol HCl (Ultram) 100 mg PO Q12H PRN PRN Reason: Pain 6-10 2ND AGENT
[2018-06-18] MEDS: Atorvastatin Calcium 40 MG TAB PO SCH (20:42)
[2018-06-19] MEDS: Furosemide 100 MG/10 ML VIAL SLOW IVP SCH ×2 (05:12→13:22)
[2018-06-19] MEDS: Nitroglycerin 2% Ointment 1 INCH/1 GM Packet TOP SCH ×3 (05:14→19:48)
[2018-06-19] MEDS: Sevelamer Carbonate 800 MG TAB PO SCH ×2 (10:02→19:47)
[2018-06-19] MEDS: cloNIDine 0.2 MG TAB PO SCH ×3 (10:02→19:47)
[2018-06-19] MEDS: Carvedilol 6.25 MG TAB PO SCH ×2 (12:38→16:16)
[2018-06-19] MEDS: hydrALAZINE 25 MG TAB PO SCH ×2 (12:38→19:48)
--- NOTE | 2018-06-19 13:02 | PDOC.CTH ---
Cardiology Progress Note - Subjective Pt.seen and eval.by me.No new overnight events. - Objective Vital Signs Temp Pulse Resp BP Pulse Ox 06/19/18 08:00 82 20 118/66 99 06/19/18 04:00 98.5 F 84 18 104/57 L 93 L Admit Weight 191 lb 8 oz Weight 185 lb 3.2 oz 06/18/18 06/19/18 06/20/18 06:59 06:59 06:59 Intake Total 990 1200 Output Total 1600 1650 Balance -610 -450 - Physical Examination General/Neuro: alert & oriented x3 Lungs: CTA Heart: RRR Abdomen: NT/ND, soft Extremities: + edema B (1-2+) - Labs Result Diagrams: 06/16/18 04:28 06/15/18 05:01 Troponin/CKMB Troponin I 0.044 ng/mL (< 0.028) H 06/14/18 17:17 - Assessment/Plan 1. Acute on chronic systolic HF - stable with Lasix IV 80mg BID, bbloker; not on ELSY/ARB due to hx of CKD; 2. Non-ischemic CMY - holding Entresto due to hx of CKD; Echo on 06/17/18 showed EF 50-55%. 3. Acute on CKD - HD today 4. CAD with s/p LHC in 08/2017 with 50% stenosis in mid LAD, 60% in D2, 50% in prox Lt Cx, 30% in distal RCA, and 30% in mid LAD - stable; on BBlocker, ASA 81mg qd, and statin; not on ELSY/ARB due to hx of CKD. 5. HTN - stable with coreg, norvasc, and Clonidine. 6. Hyperlipidemia - On Statin 7. DM type 2 - managed by PCP CLARK schroeder
[2018-06-19] MEDS: Insulin Glargine 40 UNITS in Pre-Filled Syringe SC SCH (13:19)
[2018-06-19] MEDS: Famotidine 20 MG TAB PO SCH (13:19)
[2018-06-19] MEDS: NIFEdipine XL 60 MG TAB PO SCH (13:19)
--- NOTE | 2018-06-19 13:57 | PDOC.PN ---
- Subjective Encounter Start Date: 06/19/18 Encounter Start Time: 11:15 Subjective: pt up in dialysis no complains - Objective Resuscitation Status: Resuscitation Status FULL:Full Resuscitation Vital Signs & Weight: Vital Signs (12 hours) Temp Pulse Resp BP BP BP Pulse Ox 06/19/18 13:19 89 145/69 H 06/19/18 13:14 98 F 89 16 145/69 H 97 06/19/18 08:00 82 20 118/66 99 06/19/18 04:00 98.5 F 84 18 104/57 L 93 L Weight Admit Weight 191 lb 8 oz Weight 185 lb 3.2 oz I&O: 06/18/18 06/19/18 06/20/18 06:59 06:59 06:59 Intake Total 990 1200 Output Total 1600 1650 Balance -610 -450 Result Diagrams: 06/16/18 04:28 06/15/18 05:01 Additional Labs: Accuchecks 06/19/18 06/19/18 06/18/18 13:17 06:02 21:08 POC Glucose 114 H 158 H 182 H 06/18/18 16:55 POC Glucose 155 H Phys Exam - Physical Examination Neck: no nodes, no JVD, supple, full ROM Respiratory: no wheezing, no rales, no rhonchi, wheezing present, clear to auscultation bilateral Cardiovascular: RRR, no significant murmur, no rub, gallop, irregular Gastrointestinal: soft, non-tender, no distention, positive bowel sounds Dx/Plan (1) Acute on chronic renal failure Code(s): N17.9 - ACUTE KIDNEY FAILURE, UNSPECIFIED; N18.9 - CHRONIC KIDNEY DISEASE, UNSPECIFIED Status: Acute Qualifiers: Chronic kidney disease stage: stage 5, not on chronic dialysis Comment: Plans to initiate dialysis, now on Lasix. Now with right IJ tunneled dialysis catheter. Right wrist AVF 05/15. Awaiting OP dialysis chair placement. Stopped Entersto. Renal US did not show any stenosis (2) Acute on chronic systolic (congestive) heart failure Code(s): I50.23 - ACUTE ON CHRONIC SYSTOLIC (CONGESTIVE) HEART FAILURE Status : Acute Comment: Low EF 25-30%, STOPPED ENtresto as renal function has declined rapidly (3) CAD (coronary artery disease) Code(s): I25.10 - ATHSCL HEART DISEASE OF [place] CORONARY ARTERY W/O ANG PCTRS Status: Acute Qualifiers: Coronary Disease-Associated Artery/Lesion type: [place] artery [place] vs. transplanted heart: [place] heart Associated angina: without angina Qualified Code(s): I25.10 - Atherosclerotic heart disease of [place] coronary artery without angina pectoris Comment: continue aspirin and statin (4) Diabetes Code(s): E11.9 - TYPE 2 DIABETES MELLITUS WITHOUT COMPLICATIONS Status: Chronic Qualifiers: Diabetes mellitus snf insulin use: without snf use Diabetes mellitus complication status: with kidney complications Diabetes mellitus complication detail: with chronic kidney disease Chronic kidney disease stage : stage 5, not on chronic dialysis Comment: SS insulin - Plan will ask nephro if ok to stop lasix -: will ask cardio if pt can be discharge home. -: his dialysis has been set up * . Review of Systems - Review of Systems Respiratory: negative: Cough, Dry, Shortness of Breath, Hemoptysis, SOB with Excertion, Pleuritic Pain, Sputum, Wheezing Cardiovascular: negative: chest pain, palpitations, orthopnea, paroxysmal nocturnal dyspnea, edema, light headedness, other Gastrointestinal: negative: Nausea, Vomiting, Abdominal Pain, Diarrhea, Constipation, Melena, Hematochezia, Other Genitourinary: negative: Dysuria, Frequency, Incontinence, Hematuria, Retention , Other - Medications/Allergies Allergies/Adverse Reactions: Allergies Allergy/AdvReac Type Severity Reaction Status Date / Time No Known Allergies Allergy Verified 06/14/18 16:06 Medications: Current Medications Acetaminophen (Tylenol) 1,000 mg PO Q6H PRN PRN Reason: Moderate to Severe Pain (6-10) Last Admin: 06/15/18 22:20 Dose: 1,000 mg Aspirin (Aspirin Chewable) 81 mg PO DAILY [facility] Last Admin: 06/19/18 13:19 Dose: 81 mg Atorvastatin Calcium (Lipitor) 40 mg PO HS [facility] Last Admin: 06/18/18 20:42 Dose: 40 mg Carvedilol (Coreg) 12.5 mg PO BID-WM [facility] Last Admin: 06/19/18 12:38 Dose: Not Given Clonidine (Catapres) 0.2 mg PO TID [facility] Last Admin: 06/19/18 10:02 Dose: Not Given Dextrose/Water (Dextrose 50%) 25 gm SLOW IVP PRN PRN PRN Reason: Hypoglycemia Famotidine (Pepcid) 20 mg PO DAILY [facility] Last Admin: 06/19/18 13:19 Dose: 20 mg Furosemide (Lasix) 80 mg SLOW IVP 0600,1400 [facility] Last Admin: 06/19/18 13:22 Dose: 80 mg Glucagon (Glucagon) 1 mg IM PRN PRN PRN Reason: Hypoglycemia Guaifenesin/Dextromethorphan (Robitussin Dm) 15 ml PO Q4H PRN PRN Reason: Cough Hydralazine HCl (Apresoline) 75 mg PO BID [facility] Last Admin: 06/19/18 12:38 Dose: Not Given Dextrose/Water (D5w) 1,000 mls @ 0 mls/hr IV .Q0M PRN PRN Reason: Hypoglycemia Insulin Glargine 40 units/ (Miscellaneous Medication) 0.4 mls @ 0 mls/hr SC QAM [facility] Last Admin: 06/19/18 13:19 Dose: 0.4 mls Insulin Human Lispro (Humalog) 0 units SC .MODERATE SLIDING SC PRN PRN Reason: Moderate Correctional Scale Insulin Human Lispro (Humalog) 0 units SC .BEDTIME SLIDING SC PRN PRN Reason: Bedtime Correctional Scale Nifedipine (Procardia Xl) 60 mg PO DAILY [facility] Last Admin: 06/19/18 13:19 Dose: 60 mg Nitroglycerin (Nitro-Bid 2% Ointment) 0.5 inch TOP Q8HR [facility] Last Admin: 06/19/18 13:29 Dose: Not Given Ondansetron HCl (Zofran) 4 mg IVP Q6H PRN PRN Reason: Nausea/Vomiting Sevelamer Carbonate (Renvela) 400 mg PO BID [facility] Last Admin: 06/19/18 10:02 Dose: Not Given Sodium Chloride (Flush - Normal Saline) 10 ml IVF PRN PRN PRN Reason: Saline Flush Last Admin: 06/18/18 20:45 Dose: 10 ml Tramadol HCl (Ultram) 50 mg PO Q12H PRN PRN Reason: Pain 1-5 Tramadol HCl (Ultram) 100 mg PO Q12H PRN PRN Reason: Pain 6-10 2ND AGENT
[2018-06-19] MEDS: Atorvastatin Calcium 40 MG TAB PO SCH (19:47)
[2018-06-20 05:00] VITALS: TEMP 98
[2018-06-20] MEDS: Nitroglycerin 2% Ointment 1 INCH/1 GM Packet TOP SCH (05:06)
[2018-06-20] MEDS: Sevelamer Carbonate 800 MG TAB PO SCH (09:28)
[2018-06-20] MEDS: Famotidine 20 MG TAB PO SCH (09:29)
[2018-06-20] MEDS: Insulin Glargine 40 UNITS in Pre-Filled Syringe SC SCH (09:30)
[2018-06-20] MEDS ORDERED: hydrALAZINE 25 MG TAB PO SCH ×2 (09:30→21:00)
[2018-06-20] MEDS: Carvedilol 6.25 MG TAB PO SCH (09:31)
[2018-06-20] MEDS: NIFEdipine XL 60 MG TAB PO SCH (09:31)
[2018-06-20 09:34] VITALS: BP 99/57
[2018-06-20] MEDS: cloNIDine 0.2 MG TAB PO SCH (09:35)
[2018-06-20] MEDS: hydrALAZINE 25 MG TAB PO SCH (09:36)
--- NOTE | 2018-06-20 11:42 | PDOC.CTH ---
Cardiology Progress Note - Subjective No overnight events. Doing well. BP on the low side. Ready to go home. - Objective Vital Signs Temp Pulse Resp BP BP BP Pulse Ox 06/20/18 09:36 75 99/57 L 06/20/18 09:35 99/57 L 06/20/18 09:34 75 99/57 L 06/20/18 09:31 75 99/57 L 06/20/18 08:00 98 F 75 14 100/59 L 95 06/20/18 04:25 98 F 74 16 88/52 L 93 L Admit Weight 191 lb 8 oz Weight 177 lb 9.6 oz 06/19/18 06/20/18 06/21/18 06:59 06:59 06:59 Intake Total 1200 1160 Output Total 1650 3000 Balance -450 -1840 - Physical Examination General/Neuro: alert & oriented x3 Neck: no JVD present Lungs: CTA Heart: RRR Abdomen: no HSM, NT/ND Extremities: other: (mild ankle edema.Improved over prior exams.) - Labs Result Diagrams: 06/16/18 04:28 06/15/18 05:01 Troponin/CKMB Troponin I 0.044 ng/mL (< 0.028) H 06/14/18 17:17 - Assessment/Plan 1. Acute on chronic systolic HF - stable with Lasix IV 80mg BID, bbloker; not on ELSY/ARB due to hx of CKD; 2. Non-ischemic CMY - holding Entresto due to hx of CKD; Echo on 06/17/18 showed EF 50-55%. 3. Acute on CKD - HD today 4. CAD with s/p LHC in 08/2017 with 50% stenosis in mid LAD, 60% in D2, 50% in prox Lt Cx, 30% in distal RCA, and 30% in mid LAD - stable; on BBlocker, ASA 81mg qd, and statin; not on ELSY/ARB due to hx of CKD. 5. HTN - stable with coreg, norvasc, and Clonidine. BP now on the low side since on hemodialysis.. Will readjust meds. 6. Hyperlipidemia - On Statin 7. DM type 2 - managed by PCP CLARK schroeder
--- NOTE | 2018-06-20 22:02 | DIS ---
DATE OF ADMISSION: 06/14/2018 DATE OF DISCHARGE: 06/20/2018 DISCHARGE DIAGNOSES: As of the followin. Acute on chronic renal failure. 2. Acute on chronic heart failure. 3. Coronary artery disease. 4. Diabetes. HOSPITAL COURSE: The patient is a very pleasant 38-year-old male who initially presented to the [facility] on 06/14/2018 with complaints of shortness of breath and was admitted through Nephrology for pos sible dialysis. The patient also was seen by Cardiology since he initially had a low EF of 25%-30%; however, upon rechecking his echocardiogram in the hospital, his EF was about 50%. He had a recent c atheterization in 08/2017, which did not require any significant intervention. The patient had an ec hocardiogram on 06/17/2018, which indicated an EF of 50%-55% with mild left ventricular hypertrophy. The patient's medications were optimized. He also continued to have dialysis and was then discharge d home. His blood pressure medications were also adjusted. His home medications were as of the following: Atorvastatin 40 mg at bedtime, Renvela 400 mg b.i.d., Procardia 30 mg daily, insulin 40 units daily, Coreg 12.5 b.i.d., aspirin 81 mg daily. Again, his A CE and ARB was held due to his new renal failure and will be restarted once he follows up with Nephro logy and Cardiology as an outpatient. The patient has been seen and has been examined. was at the bedside. I have updated her. She had some concerns in regard to the patient's labile blood pres sure and also blood sugars. I have told her that since he has been here in the past 3-4 days, he has been going to dialysis, which most likely has something to do with his fluctuant vitals. I have carolin d her to check his Accu-Cheks more frequently and also check his blood pressure, and I have titrated his blood pressure medications down significantly. Again, they will follow up with Cardiology, Nephr ology, and primary care doctor as an outpatient.
[2018-06-21] MEDS ORDERED: NIFEdipine XL 30 MG TAB PO SCH (09:00)
[2018-06-21] MEDS ORDERED: cloNIDine 0.1 MG TAB PO SCH (09:00)
== END 2018-06-20 13:26 | disposition home or self-care (01) | DRG 264 ==
LOC: ERS 12:38 → ERHOLD 13:57 → 2NO 15:32
PROVIDERS: ADMIT Internal Medicine; ATTEND Internal Medicine
PROC: 031B0ZF Bypass Right Radial Artery to Lower Arm Vein, Open Approach (ICD-10-PCS; principal; 2018-06-15)
PROC: 0JH63XZ Insertion of Tunneled Vascular Access Device into Chest Subcutaneous Tissue and Fascia, Percutaneous Approach (ICD-10-PCS; 2018-06-15)
PROC: 02HV33Z Insertion of Infusion Device into Superior Vena Cava, Percutaneous Approach (ICD-10-PCS; 2018-06-15)
PROC: 5A1D70Z Performance of Urinary Filtration, Intermittent, Less than 6 Hours Per Day (ICD-10-PCS; 2018-06-16)
PROC: 5A1D70Z Performance of Urinary Filtration, Intermittent, Less than 6 Hours Per Day (ICD-10-PCS; 2018-06-17)
PROC: 5A1D70Z Performance of Urinary Filtration, Intermittent, Less than 6 Hours Per Day (ICD-10-PCS; 2018-06-18)
PROC: 5A1D70Z Performance of Urinary Filtration, Intermittent, Less than 6 Hours Per Day (ICD-10-PCS; 2018-06-19)
DX: I13.2 Hypertensive heart and chronic kidney disease with heart failure and with stage 5 chronic kidney disease, or end stage renal disease (principal); N18.6 End stage renal disease; I50.23 Acute on chronic systolic (congestive) heart failure; N17.9 Acute kidney failure, unspecified; E11.22 Type 2 diabetes mellitus with diabetic chronic kidney disease; I25.10 Atherosclerotic heart disease of native coronary artery without angina pectoris; E11.319 Type 2 diabetes mellitus with unspecified diabetic retinopathy without macular edema; E11.42 Type 2 diabetes mellitus with diabetic polyneuropathy; E78.5 Hyperlipidemia, unspecified; I42.9 Cardiomyopathy, unspecified; F31.9 Bipolar disorder, unspecified; H54.61 Unqualified visual loss, right eye, normal vision left eye; Z23 Encounter for immunization; Z79.82 Long term (current) use of aspirin; Z79.899 Other long term (current) drug therapy
CPT/HCPCS: 36415; 36416; 71045; 76700; 76770; 80061; 80069; 84443; 85007; 85025; 85027; 86580; 86704; 86705; 86706; 86707; 86803; 87340; 87350; 87389; 90471; 90686; 90732; 90935; 93005; 93306; 93798; 93970; 94760; C1752; C1769; G0008; G0009; G0257; G0365; J0670; J1644; J1650; J1940; J2001; J2405; J2704; J2720; J3010; P9047; Q9967

== ENCOUNTER 2018-09-18 14:19 | Observation (INO) | payer OTHER, BC ==
[2018-09-18 15:49] LABS: #Basophils 0.1 thou/uL (0.0-0.2); #Eosinphils 0.3 thou/uL (0.0-0.7); #Lymphocytes 1.6 thou/uL (1.20-3.40); #Monocytes 0.5 thou/uL (0.11-0.59); #Neutrophils 5.3 thou/uL (1.40-6.50); %Basophils 1.1 % (0.0-1.0); %Eosinophils 3.6 % (0.0-10.0); %Lymphocytes 20.3 % (21.0-51.0); %Monocytes 5.9 % (0.0-10.0); %Neutrophils 69.2 % (42.0-75.0); Mean Corpuscular HGB CONC 33.3 g/dL (32.0-36.0); Mean Platelet Volume 9.9 fL (7.4-10.4); Platelet Count 148 thou/uL (130-400); RBC Distribution Width 12.3 % (11.5-14.5); Red Blood Cell (RBC) Count 3.67 mill/uL (4.70-6.10); White Blood Cell (WBC) Count 7.7 thou/uL (4.8-10.8)
[2018-09-18 16:06] LABS: ALT (SGPT) 9 U/L (8-55); AST (SGOT) 19 U/L (5-34); Albumin 3.4 g/dL (3.5-5.0); Alkaline Phosphatase 115 U/L (40-150); Anion Gap 17 mmol/L (10-20); BUN (Urea Nitrogen) 56 mg/dL (8.9-20.6); Bilirubin, Total 0.8 mg/dL (0.2-1.2); Calc. Creatinine Clearance 0 mL/min (70-130); Calcium 7.2 mg/dL (7.8-10.44); Carbon Dioxide 22 mmol/L (22-29); Chloride 100 mmol/L (98-107); Estimated GFR-MDRD 9; Globulin 2.9 g/dL (2.4-3.5); Glucose 105 mg/dL (70-105); Potassium 5.3 mmol/L (3.5-5.1); Protein, Total 6.3 g/dL (6.0-8.3); Sodium 134 mmol/L (136-145)
--- NOTE | 2018-09-18 16:24 | RAD ---
PORTABLE CHEST 1 VIEW: Date: 09/18/18 Time: 1434 hours HISTORY: Fluid overload. FINDINGS: Comparison made with exam of 06/15/18. There has been interval removal of the right-sided dialysis catheter. The heart size is borderline. No focal areas of consolidation, pneumothorax, thomas pulmonary edema, o r pleural effusions are seen. IMPRESSION: No acute process. POS: [facility]
--- NOTE | 2018-09-18 17:16 | ULT ---
VENOUS DOPPLER ULTRASOUND OF THE RIGHT UPPER EXTREMITY: 09/18/18 HISTORY: Dialysis access issues. Patient has a fistula. TECHNIQUE: Mendes scale, color flow, and spectral doppler imaging of the deep venous system of the right lower ext remity is performed. FINDINGS: There is a cephalic vein/radial artery fistula in the lower right arm which is patent. There is good flow, compression and normal waveforms in the right internal jugular, subclavian, axill caron, brachial, radial, ulnar, basilic, cephalic veins. IMPRESSION: 1. No evidence of DVT in the right upper extremity. 2. Patent fistula in the right lower arm. POS: [facility]
[2018-09-18] MEDS ORDERED: Heparin 1,000 UNITS/ML VIAL ONE (18:00)
[2018-09-18] MEDS ORDERED: Acetaminophen 325 MG TAB PO PRN (18:37)
[2018-09-18] MEDS ORDERED: NIFEdipine XL 30 MG TAB ONE (18:43)
[2018-09-18] MEDS ORDERED: NIFEdipine XL 30 MG TAB PO SCH (18:45)
[2018-09-18] MEDS: Atorvastatin Calcium 40 MG TAB PO SCH (21:20)
[2018-09-18] MEDS: Carvedilol 25 MG TAB PO SCH (21:20)
[2018-09-18] MEDS: Sevelamer Carbonate 800 MG TAB PO SCH (21:21)
[2018-09-18 21:45] VITALS: BMI 26.2
[2018-09-19] MEDS ORDERED: Dextrose 50% Abboject 50 ML SYRINGE SLOW IVP PRN (03:18)
[2018-09-19] MEDS ORDERED: HumaLOG 300 UNITS/3 ML VIAL SC PRN (03:18)
[2018-09-19] MEDS ORDERED: Dextrose 5% in Water 1,000 ML IV PRN (03:18)
--- NOTE | 2018-09-19 04:38 | HP ---
PRIMARY CARE PHYSICIAN: Neeraj Howe MD CODE STATUS: Full code. TIME OF EVALUATION: 08:45 p.m. CHIEF COMPLAINT: Unable to access dialysis graft. HISTORY OF PRESENT ILLNESS: This is a 38-year-old male patient. The patient has a past medical history of end-stage renal disease, diabetes, diabetic retinopathy, CHF, came to the hospital after having been unable to get the hemodialysis and the dialysis AV graft was not functioning well. For that reason, the patient had been sent to the hospital. The patient will need evaluation by Nephro and Surgery for any further treatment on the AV graft. He does not have any other significant major symptoms. REVIEW OF SYSTEMS: CONSTITUTIONAL: No fever, chills, or generalized weakness. RESPIRATORY: No cough, sputum production, or shortness of breath. CARDIOVASCULAR: No chest pain or palpitations. GASTROINTESTINAL: No nausea, no vomiting, diarrhea, or abdominal pain. NETWORKS COMPUTER CONSULTANT: No dizziness, headache, or feeling lightheaded. GENITOURINARY: No burning on urination. EXTREMITIES: No leg swelling. The patient has a right AV graft that is not working properly in his arm. All other systems were reviewed and negative except for the findings mentioned above. PAST MEDICAL HISTORY: As mentioned in the HPI. PAST SURGICAL HISTORY: The patient has a history of right arm AV graft and right PermCath in the right IJ. PSYCH HISTORY: Includes anxiety, bipolar disorder. SOCIAL HISTORY: No alcohol, no drugs, no smoking history. The patient lives at home with family. KNOWN ALLERGIES: No known drug allergies. REPORTED MEDICATIONS: 1. Atorvastatin. 2. Carvedilol. PHYSICAL EXAMINATION: VITAL SIGNS: On presentation, blood pressure 181/108 with heart rate 93, respiratory rate was 12, temperature 97.8, pain was zero, oxygen saturation was 98% on room air. The blood pressure was improved after initial treatment. GENERAL APPEARANCE: The patient is alert and oriented, not in acute distress. HEENT: Eyes, normal conjunctivae. Moist oral mucosa. Anicteric. No JVD. RESPIRATORY: Bilateral air entry. No rales. No wheezes. Symmetric expansion. CARDIOVASCULAR: Normal rate, regular rhythm. No murmurs, no gallops, no edema. ABDOMEN: Soft. Normal bowel sounds. MUSCULOSKELETAL: Baseline range of motion and strength. No tenderness. Skin is warm, intact. No pallor. No rash. No redness. Peripheral pulses are present. Capillary refill seems to be intact. NEURO: No evidence of any new focal weakness. Baseline speech. Cranial nerves seems to be intact. PSYCH: The patient has good mood. No anxiety. Optimal judgment. EXTREMITIES: Right upper arm AV graft is not working properly. DIAGNOSTIC STUDIES: Chest x-ray was reviewed. The patient has no acute process. Vascular ultrasound was done, the patient has no evidence of DVT in the right upper extremity, patent fistula in the right lower arm. LABORATORY DATA: Labs were reviewed. The patient has white count 7.7, hemoglobin 11, MCV 90. Chemistry; sodium 134, potassium 5.3, chloride 100, carbon dioxide 22, anion gap 17, BUN 56, creatinine 6.6, GFR 9, glucose 105, POC glucose 97, calcium 7.2, total bilirubin 0.8, AST 19, ALT 9, alkaline phosphatase 115. B-type natriuretic peptide 916. Serum total protein 6.3, albumin 3.4, globulin 2.9, albumin to globulin ratio is 1.2. ASSESSMENT AND PLAN: The patient will be placed in the hospital with following medical problems: 1. Malfunction of the AV fistula for hemodialysis. Nephro and Surgery will see the patient for any further management. Last hemodialysis for the patient was on as per the patient report. 2. Hyponatremia. Sodium 134. This is mild, no need for any acute intervention at this point. 3. Hyperkalemia. Potassium 5.3. This is mild, Nephro will see the patient for any acute intervention at this point. 4. Diabetes type 2 that is controlled, we will place the patient on sliding scale for optimal control. 5. Hypertension. Reconcile home medications, adjust treatment as needed. 6. History of diabetic , reconcile home medications. 7. Deep venous thrombosis prophylaxis. Job ID: [id number]
[2018-09-19 06:09] LABS: #Basophils 0.1 thou/uL (0.0-0.2); #Eosinphils 0.2 thou/uL (0.0-0.7); #Monocytes 0.5 thou/uL (0.11-0.59); #Neutrophils 5.3 thou/uL (1.40-6.50); %Basophils 0.7 % (0.0-1.0); %Eosinophils 3.3 % (0.0-10.0); %Lymphocytes 14.5 % (21.0-51.0); %Monocytes 7.1 % (0.0-10.0); %Neutrophils 74.4 % (42.0-75.0); Hemoglobin 10.2 g/dL (14.0-18.0); Mean Corpuscular HGB CONC 33.4 g/dL (32.0-36.0); Mean Corpuscular Hemoglobin 30.3 pg (27.0-31.0); Mean Corpuscular Volume 90.9 fL (78.0-98.0); Mean Platelet Volume 11.4 fL (7.4-10.4); Platelet Count 134 thou/uL (130-400); RBC Distribution Width 12.4 % (11.5-14.5); Red Blood Cell (RBC) Count 3.35 mill/uL (4.70-6.10); White Blood Cell (WBC) Count 7.1 thou/uL (4.8-10.8)
[2018-09-19 06:36] LABS: Anion Gap 16 mmol/L (10-20); BUN (Urea Nitrogen) 64 mg/dL (8.9-20.6); Calc. Creatinine Clearance 16 mL/min (70-130); Carbon Dioxide 21 mmol/L (22-29); Chloride 103 mmol/L (98-107); Estimated GFR-MDRD 9; Glucose 147 mg/dL (70-105); Potassium 4.6 mmol/L (3.5-5.1); Sodium 135 mmol/L (136-145)
[2018-09-19] MEDS: Aspirin Chewable 81 MG TAB PO SCH (09:31)
[2018-09-19] MEDS: NIFEdipine XL 30 MG TAB PO SCH (09:31)
[2018-09-19] MEDS: Carvedilol 25 MG TAB PO SCH ×2 (09:31→20:38)
[2018-09-19] MEDS: Sevelamer Carbonate 800 MG TAB PO SCH ×2 (09:56→20:39)
[2018-09-19] MEDS ORDERED: Loperamide HCl 2 MG CAP PO PRN (10:11)
--- NOTE | 2018-09-19 12:59 | PDOC.PN ---
- Subjective Encounter Start Date: 09/19/18 Encounter Start Time: 12:57 Mr. Bryant was seen today in follow-up of malfunctioning AV fistula. He only complaint is nausea some diarrhea. He has missed 2 dialysis sessions as a result of the malfunction. - Objective Resuscitation Status - Order Detail: 09/18/18 18:37 Resuscitation Status Routine Resuscitation Status: FULL: Full Resuscitation MAR Reviewed: Yes Vital Signs & Weight: Vital Signs (12 hours) Temp Pulse Resp BP Pulse Ox 09/19/18 11:24 98.3 F 78 20 108/56 L 96 09/19/18 09:31 82 09/19/18 07:53 97.8 F 82 18 106/58 L 97 09/19/18 03:53 98.1 F 76 18 102/56 L 98 Weight Weight 182 lb 4.8 oz I&O: 09/18/18 09/19/18 09/20/18 06:59 06:59 06:59 Intake Total 600 Output Total 200 Balance 400 Result Diagrams: 09/19/18 05:23 09/19/18 05:23 Additional Labs: Accuchecks 09/19/18 09/19/18 09/18/18 10:48 05:12 20:26 POC Glucose 161 H 147 H 97 Phys Exam - Physical Examination HEENT: PERRLA Respiratory: no wheezing, no rales, no rhonchi, clear to auscultation bilateral Cardiovascular: RRR, no significant murmur, no rub Gastrointestinal: soft, non-tender, positive bowel sounds Musculoskeletal: pulses present, edema present 2+ pitting edema, and mild erythema both lower extremities Dx/Plan (1) Dialysis AV fistula malfunction Code(s): T82.590A - [facility] COMPL OF SURGICALLY CREATED ARTERIOVENOUS FISTULA, INIT Status: Acute (2) End stage renal disease on dialysis Code(s): N18.6 - END STAGE RENAL DISEASE; Z99.2 - DEPENDENCE ON RENAL DIALYSIS Status: Chronic (3) Diabetes Code(s): E11.9 - TYPE 2 DIABETES MELLITUS WITHOUT COMPLICATIONS Status: Chronic Qualifiers: Diabetes mellitus manager terminal insulin use: without half-way use Diabetes mellitus complication status: with kidney complications Diabetes mellitus complication detail: with chronic kidney disease Chronic kidney disease stage : stage 5, not on chronic dialysis Comment: SS insulin (4) HTN (hypertension) Code(s): I10 - ESSENTIAL (PRIMARY) HYPERTENSION Status: Chronic Qualifiers: Hypertension type: essential hypertension Qualified Code(s): I10 - Essential (primary) hypertension Comment: Continue Amlodipine, Cravedilol, Clonidine - Plan * AV- fistula Malfunction- await surgery recommendations * ESRD- continue maintenance dialysis when able * HTN- blood pressure is stable * DM- blood glucose - stable.
[2018-09-19] MEDS: Atorvastatin Calcium 40 MG TAB PO SCH (20:39)
[2018-09-19] MEDS ORDERED: FLUoxetine HCl 20 MG CAP PO SCH (22:45)
[2018-09-20] MEDS: Sevelamer Carbonate 800 MG TAB PO SCH ×2 (08:38→21:13)
[2018-09-20] MEDS: Carvedilol 25 MG TAB PO SCH ×2 (08:39→21:12)
[2018-09-20] MEDS: FLUoxetine HCl 20 MG CAP PO SCH (08:39)
[2018-09-20] MEDS: NIFEdipine XL 30 MG TAB PO SCH (08:39)
[2018-09-20] MEDS: Aspirin Chewable 81 MG TAB PO SCH (08:39)
[2018-09-20] MEDS ORDERED: Heparin 10,000 UNITS/ 10 ML VIAL ONE (13:45)
[2018-09-20] MEDS ORDERED: CEFAZOLIN/Water 2 GM/20 ML SYRINGE SLOW IVP SCH (14:00)
--- NOTE | 2018-09-20 14:14 | HP ---
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 Obinna Vieira. The patient has a right Fabio fistula. He had this placed on June 15, 2018. Apparently he had been using that for dialysis successfully and removed his hemodialysis catheter 4 to 6 weeks ago. There was some dysfunction of his fistula and he saw Dr. Duke who performed some embolic procedure and after that, the fistula would not work. I am asked to see him regarding placement of hemodialysis catheter as he has not been able to dialyze in 6 days. His white count is 7, hemoglobin 10. Potassium 4.6, sodium 135. He has been n.p.o. since last night. He is admitted to the medical service. PAST MEDICAL AND SURGICAL HISTORY: June right Fabio fistula. He is noted to have good veins on his left upper arm. He is right handed. Bipolar disorder, anxiety. MEDICATIONS: 1. Fluoxetine 20 mg a day. 2. Insulin. 3. Aspirin 81 mg a day. 4. Nifedipine 30 mg a day. 5. Carvedilol 12.5 mg b.i.d. 6. Atorvastatin 40 mg at bedtime. 7. hemodialysis catheter placement. ALLERGIES: NONE. SOCIAL HISTORY: Tobacco, none. Alcohol none. The patient lives at home with his family. PHYSICAL EXAMINATION: VITAL SIGNS: Height 5 feet 10 inches, weight 182 pounds, 26 BMI. Temperature 98.2, HEAD, EARS, EYES, NOSE, AND THROAT: Unremarkable. LUNGS: Clear to auscultation. CARDIAC: Regular rate and rhythm without murmur or gallop. ABDOMEN: Soft and nontender. EXTREMITIES: Unremarkable. VASCULAR: Prominent pulsations, medial fistula just beyond the radial arterial anastomosis. The rest, he has soft bruit audible in the proximal forearm. He has nguyễn of access of his fistula in his proximal forearm. He has thrombosis of a collateral vein, lateral volar forearm. ASSESSMENT AND PLAN: 1. Dysfunctional fistula, right arm. Plan; placement of a hemodialysis catheter to allow dialysis. I have discussed with Dr. Duke and will most likely plan more proximal fistula this hospitalization in the next day or two. Could consider left arm fistula since he is right handed. 2. Diabetes mellitus. 3. Hypertension. 4. Bipolar disorder. 5. 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 Job ID: [id number]
[2018-09-20] MEDS ORDERED: Heparin 10,000 UNITS/1 ML VIAL ONE (14:44)
[2018-09-20] MEDS ORDERED: Bupivacaine HCl 0.5%/Epinephrine 1:200,000/PF 30 ml Vial ONE (14:44)
[2018-09-20] MEDS ORDERED: Lidocaine 2% PF 5 ML VIAL ONE (14:44)
[2018-09-20] MEDS ORDERED: Sodium Chloride 0.9% 30 ML ONE (14:44)
[2018-09-20] MEDS ORDERED: Midazolam HCl 2 mg/2 ml Vial ONE (15:21)
[2018-09-20] MEDS ORDERED: Fentanyl 100 MCG/2 ML VIAL ONE (15:21)
[2018-09-20] MEDS ORDERED: PROPOFOL 200 MG/20 ML VIAL ONE (15:25)
[2018-09-20] MEDS ORDERED: Lidocaine 1% PF 5 ML VIAL ONE (15:25)
[2018-09-20] MEDS ORDERED: Promethazine HCl 25 MG/ML VIAL SLOW IVP PRN (15:52)
[2018-09-20] MEDS ORDERED: Ondansetron HCl/PF 4 MG/2 ML Vial IVP PRN (15:52)
[2018-09-20] MEDS ORDERED: Promethazine HCl 25 MG/ML VIAL IM PRN (15:52)
[2018-09-20] MEDS ORDERED: Acetaminophen 500 MG TAB PO PRN (15:55)
[2018-09-20] MEDS ORDERED: traMADol HCl 50 MG TAB PO PRN ×2 (15:55)
--- NOTE | 2018-09-20 16:00 | PDOC.PN ---
- Subjective Encounter Start Date: 09/20/18 Encounter Start Time: 11:00 Mr. Bryant was seen today for follow-up of malfunctioning AV- fistula. He does not have any complaints today. - Objective Resuscitation Status - Order Detail: 09/18/18 18:37 Resuscitation Status Routine Resuscitation Status: FULL: Full Resuscitation MAR Reviewed: Yes Vital Signs & Weight: Vital Signs (12 hours) Temp Pulse Resp BP BP Pulse Ox 09/20/18 11:48 98.2 F 80 16 132/73 95 09/20/18 08:39 79 115/64 09/20/18 07:42 98.5 F 79 16 115/64 97 09/20/18 04:15 98.5 F 83 17 126/70 97 Weight Weight 182 lb 4.8 oz I&O: 09/19/18 09/20/18 09/21/18 06:59 06:59 06:59 Intake Total 600 620 Output Total 200 50 Balance 400 570 Result Diagrams: 09/19/18 05:23 09/19/18 05:23 Additional Labs: Accuchecks 09/20/18 09/20/18 09/19/18 10:44 05:37 20:45 POC Glucose 160 H 152 H 217 H 09/19/18 16:44 POC Glucose 189 H Phys Exam - Physical Examination HEENT: PERRLA Respiratory: no wheezing, no rales, no rhonchi, clear to auscultation bilateral Cardiovascular: RRR, no significant murmur, no rub Gastrointestinal: soft, non-tender, positive bowel sounds Musculoskeletal: pulses present, edema present 2+ pitting edema in both lower extremities Dx/Plan (1) Dialysis AV fistula malfunction Code(s): T82.590A - [facility] COMPL OF SURGICALLY CREATED ARTERIOVENOUS FISTULA, INIT Status: Acute (2) End stage renal disease on dialysis Code(s): N18.6 - END STAGE RENAL DISEASE; Z99.2 - DEPENDENCE ON RENAL DIALYSIS Status: Chronic (3) Diabetes Code(s): E11.9 - TYPE 2 DIABETES MELLITUS WITHOUT COMPLICATIONS Status: Chronic Qualifiers: 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: without group home use Diabetes mellitus complication status: with kidney complications Diabetes mellitus complication detail: with chronic kidney disease Chronic kidney disease stage : stage 5, not on chronic dialysis Comment: SS insulin (4) HTN (hypertension) Code(s): I10 - ESSENTIAL (PRIMARY) HYPERTENSION Status: Chronic Qualifiers: Hypertension type: essential hypertension Qualified Code(s): I10 - Essential (primary) hypertension Comment: Continue Amlodipine, Cravedilol, Clonidine - Plan * Malfunctioning AV fistula- he will need a temporary catheter placed * ESRD- he will need dialysis soon- as he missed 2 sessions so far * HTN- blood pressure is stable * DM- blood glucose is stable.
--- NOTE | 2018-09-20 16:25 | RAD ---
SINGLE VIEW CHEST: Date: 09/20/18 COMPARISON: 09/18/18. HISTORY: Fluid overload. PACU patient. Central line placement. FINDINGS: Single view of the chest shows a cardiomediastinal silhouette which is upper limits of normal in size . A right IJ dialysis catheter is seen with its tip at the aortocaval junction. No pneumothorax is se en. There is no evidence of consolidation, mass, or pleural effusion. IMPRESSION: Status post central line placement without evidence of complication. POS: [facility]
--- NOTE | 2018-09-20 17:01 | OP ---
DATE OF PROCEDURE: 09/20/2018 PREOPERATIVE DIAGNOSIS: Dysfunctional Fabio fistula, right, status post intervention with embolization of collaterals, Dr. Duke, but with outflow present but cannot be cannulated, prominent pulsations, arterial inflow, venous cephalic vein. ANESTHESIA: TIVA, local of 0.5% Marcaine with epinephrine 30 mL mixed with 2 mL of Xylocaine 10 mL, fluoroscopy and ultrasound used. PROCEDURE PERFORMED: Placement of right-IJ cuffed tunneled hemodialysis catheter. DESCRIPTION OF PROCEDURE: The patient was taken to the operating room under intravenous sedation. Neck and chest were clipped of hair, prepared with ChloraPrep, and draped in routine fashion. Local anesthetic was infiltrated into the skin and subcutaneous tissue about the operative site. Using ultrasound guidance, right internal jugular vein was cannulated with a trocar catheter, J-wire threaded, trocar catheter removed, and skin was enlarged sharply with 11 blade. A stab incision was made over the right chest with the planned exit site using the tunneling device to pre-curve the [employer] cuffed-tunneled hemodialysis catheter tunneled between 2 incisions, placed the fabric cuff beneath the catheter exit site. Catheter secured with 2 interrupted suture of 3-0 nylon. Sterile dressings applied. Small and medium sized dilators were placed over the J-wire into the internal jugular vein and removed. Dilator and Peel-Away sheath placed with J-wire in superior vena cava. Dilator and J-wire were removed catheter placed through the Peel-Away sheath. Pull away sheath removed. Platysma was approximated with 4-0 Monocryl, skin with subdermal 4-0 Monocryl, and [place] glue applied each port aspirated blood flushed with saline solution and heparinized saline solution 1000 units heparin per mL indicating volume of the port. The patient tolerated the procedure well without complication. Job ID: [id number]
[2018-09-20] MEDS: Atorvastatin Calcium 40 MG TAB PO SCH (21:14)
--- NOTE | 2018-09-21 08:55 | PDOC.PN ---
- Subjective Encounter Start Date: 09/21/18 Encounter Start Time: 08:54 Subjective: Patient resting comfortably. Feels well in himself. -: Reports having night sweats for a brief period of time yesterday. -: Underwent dialysis yesterday without any complications. Tolerating oral intake. Denies any pain. No nausea/vomiting. Denies any abdominal pain. Has been afebrile. Denies any headaches or dizziness. No chest pain or sob. - Objective Resuscitation Status - Order Detail: 09/18/18 18:37 Resuscitation Status Routine Resuscitation Status: FULL: Full Resuscitation Vital Signs & Weight: Vital Signs (12 hours) Temp Pulse Resp BP Pulse Ox 09/21/18 07:33 97.7 F 81 15 128/76 94 L 09/21/18 03:16 97.6 F 91 16 113/69 96 09/21/18 00:00 98.7 F 86 12 115/62 97 Weight Weight 171 lb 8 oz I&O: 09/20/18 09/21/18 09/22/18 06:59 06:59 06:59 Intake Total 620 600 Output Total 50 275 Balance 570 325 Result Diagrams: 09/19/18 05:23 09/19/18 05:23 Additional Labs: Accuchecks 09/21/18 09/21/18 09/20/18 05:21 00:29 21:42 POC Glucose 170 H 174 H 116 H 09/20/18 10:44 POC Glucose 160 H Phys Exam - Physical Examination Constitutional: NAD HEENT: PERRLA, moist MMs, oral pharynx no lesions Neck: no nodes, supple, full ROM Respiratory: clear to auscultation bilateral Cardiovascular: RRR Gastrointestinal: soft, non-tender, no distention, positive bowel sounds Musculoskeletal: no edema Neurological: normal sensation, moves all 4 limbs Psychiatric: normal affect, A&O x 3 Skin: no rash Dx/Plan (1) Dialysis AV fistula malfunction Code(s): T82.590A - [facility] COMPL OF SURGICALLY CREATED ARTERIOVENOUS FISTULA, INIT Status: Acute (2) End stage renal disease on dialysis Code(s): N18.6 - END STAGE RENAL DISEASE; Z99.2 - DEPENDENCE ON RENAL DIALYSIS Status: Chronic (3) Acute on chronic renal failure Code(s): N17.9 - ACUTE KIDNEY FAILURE, UNSPECIFIED; N18.9 - CHRONIC KIDNEY DISEASE, UNSPECIFIED Status: Acute Qualifiers: Chronic kidney disease stage: stage 5, not on chronic dialysis Comment: Plans to initiate dialysis, now on Lasix. Now with right IJ tunneled dialysis catheter. Right wrist AVF 05/15. Awaiting OP dialysis chair placement. Stopped Entersto. Renal US did not show any stenosis (4) Diabetes Code(s): E11.9 - TYPE 2 DIABETES MELLITUS WITHOUT COMPLICATIONS Status: Chronic Qualifiers: Diabetes mellitus fdc insulin use: without fdc use Diabetes mellitus complication status: with kidney complications Diabetes mellitus complication detail: with chronic kidney disease Chronic kidney disease stage : stage 5, not on chronic dialysis Comment: SS insulin (5) HTN (hypertension) Code(s): I10 - ESSENTIAL (PRIMARY) HYPERTENSION Status: Chronic Qualifiers: Hypertension type: essential hypertension Qualified Code(s): I10 - Essential (primary) hypertension Comment: Continue Amlodipine, Cravedilol, Clonidine - Plan cont current plan of care, out of bed/ambulate, DVT proph w/SCDs s/p catheter placement and dialysis yesterday evening. -: For assessment of AV fistula today. -: Repeat labs this morning (CBC and chem panel). -: Monitor glucose. * .
[2018-09-21] MEDS: Aspirin Chewable 81 MG TAB PO SCH (09:09)
[2018-09-21] MEDS: Carvedilol 25 MG TAB PO SCH (09:09)
[2018-09-21] MEDS: FLUoxetine HCl 20 MG CAP PO SCH (09:09)
[2018-09-21] MEDS: NIFEdipine XL 30 MG TAB PO SCH (09:09)
[2018-09-21] MEDS: Sevelamer Carbonate 800 MG TAB PO SCH (09:10)
[2018-09-21 09:17] LABS: #Eosinphils 0.3 thou/uL (0.0-0.7); #Lymphocytes 1.1 thou/uL (1.20-3.40); #Monocytes 0.5 thou/uL (0.11-0.59); #Neutrophils 4.5 thou/uL (1.40-6.50); %Basophils 0.4 % (0.0-1.0); %Eosinophils 4.3 % (0.0-10.0); %Lymphocytes 16.7 % (21.0-51.0); %Monocytes 8.4 % (0.0-10.0); %Neutrophils 70.1 % (42.0-75.0); Hemoglobin 12.2 g/dL (14.0-18.0); Mean Corpuscular Hemoglobin 29.4 pg (27.0-31.0); Mean Corpuscular Volume 91.7 fL (78.0-98.0); Mean Platelet Volume 11.3 fL (7.4-10.4); Platelet Count 158 thou/uL (130-400); RBC Distribution Width 12.4 % (11.5-14.5); Red Blood Cell (RBC) Count 4.16 mill/uL (4.70-6.10); White Blood Cell (WBC) Count 6.4 thou/uL (4.8-10.8)
[2018-09-21 09:35] LABS: ALT (SGPT) Less than 7 U/L (8-55); AST (SGOT) 14 U/L (5-34); Albumin 3.2 g/dL (3.5-5.0); Alkaline Phosphatase 112 U/L (40-150); Anion Gap 13 mmol/L (10-20); BUN (Urea Nitrogen) 30 mg/dL (8.9-20.6); Bilirubin, Total 0.5 mg/dL (0.2-1.2); Calc. Creatinine Clearance 21 mL/min (70-130); Calcium 7.5 mg/dL (7.8-10.44); Carbon Dioxide 28 mmol/L (22-29); Chloride 101 mmol/L (98-107); Estimated GFR-MDRD 13; Globulin 3.1 g/dL (2.4-3.5); Glucose 159 mg/dL (70-105); Potassium 4.3 mmol/L (3.5-5.1); Protein, Total 6.3 g/dL (6.0-8.3); Sodium 138 mmol/L (136-145)
--- NOTE | 2018-09-21 13:32 | PRG ---
DATE OF SERVICE: 09/21/2018 Christiano Bryant is doing well today. The patient had a fistulogram today. Fistulogram revealed widely patent outflow into the cephalic, basilic vein upper arm. The cephalic vein is distended in his upper arm on clinical evaluation. The patient has good thrill and bruit in his fistula. The arterial inflow is so brisk from his radial artery. This could not be refluxed due to valvular structures and efforts to reflux it to view the arterial venous anastomosis were not possible. At this point, the patient is doing well. He has dialysis catheter for dialysis. Recommend using that dialysis catheter for the next week and then resume attempts at accessing his fistula. Hopefully, we can remove his dialysis catheter in the near future. The patient is stable for discharge anytime from a surgical standpoint. He should follow up with me in about 1 to 2 weeks. Job ID: [id number]
--- NOTE | 2018-09-21 15:12 | SPC ---
DIALYSIS FISTULOGRAM RIGHT UPPER EXTREMITY: History: Difficulty access, right arm dialysis fistula. Fluoro time: 0.7 minutes. FINDINGS: After explaining the procedure and answering all questions, the right upper extremity was prepped and draped in the usual sterile fashion. Sterile technique, buffered local anesthesia, and a 22 gauge ne edle were used to carefully access the right forearm dialysis fistula just above the level of the wri st. A 4 Maltese dilator and sheath was placed for imaging. Serial imaging shows good contrast flow into and throughout the forearm cephalic fistula with a few s mall collaterals. There is equal flow in the upper arm to the cephalic and the basilic veins. Central vasculature and superior vena cava are patent. Attempt at reflux angiogram of the arterial inflow was unsuccessful due to venous valves and collater als very close to the anastomosis. Vigorous arterial inflow also precluded good opacification. The sheath was removed and hemostatis obtained using direct pressure. Patient tolerated the procedure well and is returned in unchanged condition. IMPRESSION: Good flow and function of right arm dialysis fistula. No evidence of stricture. Findings were discussed with Dr. Blair at the time of the exam. POS: [facility]
[2018-09-21 16:28] VITALS: BP 130/74; TEMP 98.1
== END 2018-09-21 17:29 | disposition home or self-care (01) ==
LOC: ERS 14:19 → 2SW 17:56
PROVIDERS: ADMIT Internal Medicine; ATTEND Specialist
PROC: 05HM33Z Insertion of Infusion Device into Right Internal Jugular Vein, Percutaneous Approach (ICD-10-PCS; principal; 2018-09-21)
DX: T82.510A Breakdown (mechanical) of surgically created arteriovenous fistula, initial encounter (principal); I12.0 Hypertensive chronic kidney disease with stage 5 chronic kidney disease or end stage renal disease; E11.22 Type 2 diabetes mellitus with diabetic chronic kidney disease; N18.6 End stage renal disease; N17.9 Acute kidney failure, unspecified; Z99.2 Dependence on renal dialysis; E11.319 Type 2 diabetes mellitus with unspecified diabetic retinopathy without macular edema; E87.1 Hypo-osmolality and hyponatremia; E87.5 Hyperkalemia; F41.9 Anxiety disorder, unspecified; F31.9 Bipolar disorder, unspecified; Z79.4 Long term (current) use of insulin; Z79.899 Other long term (current) drug therapy
CPT/HCPCS: 36415; 36416; 36901; 71045; 76000; 80048; 80053; 83880; 85025; 90935; C1752; C1769; G0257; G0378; J0670; J1644; J2001; J2250; J2704; J3010